=== PATIENT | female | born 1980 | race Caucasian/White ===

== ENCOUNTER 2020-12-15 18:25 | Emergency (ER) | payer OTHER, MEDICAID, SELFPAY ==
[2020-12-15] VITALS (9 sets, daily range): BP systolic 110–141; BP diastolic 62–99; PULSE 77–97; RESP 14–33; TEMP 36.8; O2SAT 99–100
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
[2020-12-15] MEDS: TETANUS,DIPHTHERIA,AC PERTUSSIS ADULT (0.5 ML) BOOSTRIX IM (19:07)
--- NOTE | 2020-12-15 19:13 | PC.NURSE ---
Assumed care of pt. at this time. Report from CHRISTOPHER Ferrera
[2020-12-15 19:17] LABS: Basophils Absolute Auto 0.1 K/mm3 (0.0-0.1); Basophils Percent Auto 0.6 % (0.2-1.2); Eosinophils Percent Auto 0.3 % (0-4.4); Hematocrit 45.8 % (37.0-47.0); Hemoglobin 15.4 g/dL (12.0-15.0); Immature Granulocyte Absolute 0.05 K/mm3 (0.00-0.031); Immature Granulocyte Percent A 0.3 % (0-0.5); Lymphocytes Percent Auto 12.4 % (18.3-44.2); Mean Corpuscular HGB Conc 33.6 g/dl (32-36); Mean Corpuscular Hemoglobin 35.6 pg (26-34); Mean Corpuscular Volume 105.8 fl (80-100); Mean Platelet Volume 9.6 fl (7.4-10.4); Monocytes Absolute Auto 0.9 K/mm3 (0.1-0.6); Monocytes Percent Auto 6.1 % (2.6-8.5); Neutrophils Absolute Auto 11.7 K/mm3 (1.3-6.7); Neutrophils Percent Auto 80.3 % (45.5-73.1); Platelet Count Result 218 k/mm3 (150-375); Red Blood Count 4.33 M/mm3 (4.2-5.4); Red Cell Distribution Width 13.2 % (11.5-14.5); White Blood Count 14.5 K/mm3 (4.5-10.0)
[2020-12-15 19:26] LABS: INR 0.9; Prothrombin Time 12.3 Seconds (11.1-14.7)
[2020-12-15 19:27] LABS: Partial Thromboplastin Time 26.1 SECONDS (22.3-36.8)
--- NOTE | 2020-12-15 19:45 | PC.NURSE ---
Pt. taking off c-collar. pt. instructed to put it back on. pt. educated on the risks of not wearing c-collar before examinations are complete
--- NOTE | 2020-12-15 19:55 | PC.NURSE ---
Pt. removed c-collar. pt. son at the nurses station requesting RN to make pt. put c-collar back on.
[2020-12-15 20:00] LABS: Alanine Aminotransferase 87 U/L (4-35); Albumin Level 4.5 g/dL (3.5-5.1); Alkaline Phosphatase 96 U/L (38-126); Anion Gap 10 mmol/L (8-16); Aspartate Amino Transferase 117 U/L (14-36); Bilirubin,Total 0.3 mg/dL (0.2-1.3); Blood Urea Nitrogen 7 mg/dL (7-17); Calcium 8.6 mg/dL (8.4-10.2); Carbon Dioxide 21 mmol/L (22-30); Chloride 107 mmol/L (98-107); Estimated CRCL calculation 93 ml/min; Estimated Glomerular Filt Rate > 60; Glucose 113 mg/dL (65-110); Potassium 4.3 mmol/L (3.4-5.0); Sodium 138 mmol/L (137-145)
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
--- NOTE | 2020-12-15 20:20 | PC.NURSE ---
pt. refusing CT scan. ERP made aware.
--- NOTE | 2020-12-15 20:20 | PC.NURSE ---
Pt. to CT
[2020-12-15 20:25] LABS: Ethanol 306 mg/dL (<10)
== END 2020-12-15 21:55 | disposition left against medical advice (07) ==
LOC: ANHED 18:51
PROVIDERS: Emergency Provider General Practice
DX: S62.394A Other fracture of fourth metacarpal bone, right hand, initial encounter for closed fracture (principal); S62.336A Displaced fracture of neck of fifth metacarpal bone, right hand, initial encounter for closed fracture; S36.400A Unspecified injury of duodenum, initial encounter; S20.211A Contusion of right front wall of thorax, initial encounter; F10.129 Alcohol abuse with intoxication, unspecified; Z23 Encounter for immunization; I45.6 Pre-excitation syndrome; F17.200 Nicotine dependence, unspecified, uncomplicated; M47.812 Spondylosis without myelopathy or radiculopathy, cervical region; V28.4XXA Motorcycle driver injured in noncollision transport accident in traffic accident, initial encounter; Y90.8 Blood alcohol level of 240 mg/100 ml or more
CPT/HCPCS: 29125; 36415; 70450; 71045; 71260; 72125; 73130; 74177; 80053; 80307; 81025; 85025; 85610; 85730; 86850; 86900; 86901; 90471; 90715; 99284; L0140; Q9967

== ENCOUNTER 2022-02-09 05:25 | Emergency (ER) | payer OTHER, SELFPAY ==
[2022-02-09 05:28] VITALS: BP 145/92; PULSE 92; RESP 18; TEMP 36.1; O2SAT 100
--- NOTE | 2022-02-09 05:38 | PC.NURSE ---
patient admits to taken two pills and drinking 2 shots states her neighbor gave her the pills and said they were muscle relaxers. patient gave insurance underwriter the third pill noted to be oxycodone 5-500 per pill look up
[2022-02-09] MEDS: predniSONE 20 MG TABLET 40 MG PO (05:44)
[2022-02-09] MEDS: KETOROLAC 30 MG/ML VIAL (*BKC) IM (05:44)
[2022-02-09] MEDS: LIDOCAINE 5% PATCH 1 PATCH TRANSDERM (05:48)
--- NOTE | 2022-02-09 06:08 | ED.BACK ---
HPI - Back Pain/Injury General Chief Complaint: Back Pain/Injury Stated Complaint: Sciatica? 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 Patient denies any issues with urinary or bowel retention or incontinence, or saddle anesthesia, fevers or chills, any severe injury recently other than a year ago, and she is not an IV drug user. Related Data Allergies Allergy/AdvReac Type Severity Reaction Status Date / Time No Known Allergies Allergy Mild Verified 12/15/20 18:41 Review of Systems Review of Systems: GI: No abdominal : No dysuria. M/S: Lower back pain NEURO: Focal numbness right lower extremity PMFSH Past Medical History Medical History Grllg-Gtvuabxgl-Eyvch (WPW) syndrome Surgical History Surgical History H/O section Social History Social History Smoking status: Current every day smoker Alcohol intake: current Exam Narrative: EXAMINATION OF ORGAN SYSTEMS/BODY AREAS: Constitutional: Vital signs per nursing GENERAL: Mildly comfortable HEAD: Normal with no signs of head trauma. EYES: EOMI, conjunctiva normal ENT: Hearing grossly intact LUNGS: Nonlabored breathing. HEART: [Regular rate and rhythm] ABD: [Soft], [tender to palpation] BACK: No midline tenderness EXT: Normal range of motion; some paresthesias posterior right lower extremity SKIN: [No rashes or lesions.] NEURO: [Alert and oriented x 3. RLE paresthesias as above but able to bear weight and ambulate with antalgic gait.] PSYCH: Normal affect Course Vital Signs Vital signs: Vital Signs Temperature 97.0 F L 02/09/22 05:28 Pulse Rate 92 02/09/22 05:28 Respiratory Rate 18 02/09/22 05:28 Blood Pressure 145/92 H 02/09/22 05:28 Pulse Oximetry 100 02/09/22 05:28 Oxygen Delivery Room Air 02/09/22 05:28 Temperature 97.0 F L 02/09/22 05:28 Pulse Rate 92 02/09/22 05:28 Respiratory Rate 18 02/09/22 05:28 Blood Pressure 145/92 H 02/09/22 05:28 Pulse Oximetry 100 02/09/22 05:28 Oxygen Delivery Room Air 02/09/22 05:28 MDM - Back Pain/Injury MDM Narrative Medical decision making narrative: ED COURSE AND MEDICAL DECISION MAKING: ? 41-year-old with acute back pain. Normal motor exam with some paresthesias to right lower extremity. Patient able to ambulate. No evidence of acute cord compression, osteomyelitis/discitis or cauda equina without saddle anesthesia, urinary retention/incontinence, fever, history of IV drug use, cancer or immunosuppression. Doubt AAA or aortic dissection without severe pain/discomfort or any neurovascular deficits. [Ketorolac 15mg IM, prednisone 50mg PO, and lidocaine ptach] given for symptomatic relief. I did offer imaging studies however the patient declines this as she does not have insurance and would not be able to afford it, she would prefer outpatient follow-up at this time. [I discussed management of acute back pain in detail, explaining the need to remain active and the goals of pain control . Risks of using opiates were discussed with the patient.] Patient is given return precautions and instructed to come back at any point in time for worsening pain, fevers, weakness, difficulty walking, urinary or fecal incontinence. Patient expressed understanding of instructions. Discharge Plan Discharge Clinical Impression: Sciatica, Lumbar radiculopathy Patien
== END 2022-02-09 06:28 | disposition home or self-care (01) ==
LOC: ANHED 06:14
PROVIDERS: Emergency Provider Emergency Medicine
DX: M54.41 Lumbago with sciatica, right side (principal); I45.6 Pre-excitation syndrome; F17.200 Nicotine dependence, unspecified, uncomplicated; M54.16 Radiculopathy, lumbar region
CPT/HCPCS: 96372; 99283; A9270; J1885; J7512

== ENCOUNTER 2024-12-22 19:05 | Emergency (ER) | payer OTHER, SELFPAY ==
--- NOTE | ~2024-12-22 | CT_ITS ---
CT HEAD NON-CONTRAST Clinical History: headache Comparison: CT brain 12/15/2020 Technique: Unenhanced axial images skull base to vertex Coronal, sagittal reformats CT images acquired with automatic exposure control for dose reduction DLP: 681 mGy-cm Findings: Sulci, ventricles: Unremarkable. No intracerebral hemorrhage. No evidence acute territorial infarct. No mass effect, midline shift. Bony calvarium intact. Visualized paranasal sinuses: Clear. Mastoid air cells: Clear. IMPRESSION: 1. No acute intracranial findings. Reviewed, dictated and finalized at location R.
--- NOTE | ~2024-12-22 | CT_ITS ---
CT abdomen pelvis w con Clinical History: RUQ pain . Comparison: CTA chest abdomen pelvis 12/15/2020 Technique: Axial images lung bases to symphysis pubis 100 mL Omnipaque 350 Coronal, sagittal reformats CT images acquired with automatic exposure control for dose reduction DLP: 250 mGy-cm Findings: Lung bases: Clear. Visualized heart and pericardium: Unremarkable. Liver: Cirrhosis. Enlarged. Steatosis. Gallbladder: Unremarkable. Spleen: Unremarkable. Pancreas: Unremarkable. Adrenal glands: Unremarkable. Kidneys: Right kidney- No hydronephrosis. No renal stones. Left kidney- No hydronephrosis. No renal stones. Circumaortic renal vein. Distal esophagus/stomach: Mild mucosal enhancement of stomach. Small bowel loops: Mildly distended, air fluid levels. Colon: Wall thickening. Normal RLQ appendix. Nodes: No enlarged nodes. Peritoneum: No ascites. No free air. Urinary bladder: Unremarkable. Uterus: IUD. Adnexa: No masses. Bones: No acute bony abnormality. Soft tissues: Unremarkable. Aorta: No aneurysm or dissection. IVC: Unremarkable. Main portal vein/SMV/splenic vein: Patent. IMPRESSION: 1. Enterocolitis. 2. Mild gastritis not excluded. 3. Cirrhosis. Hepatomegaly, with steatosis. Reviewed, dictated and finalized at location R.
[2024-12-22 19:34] VITALS: BP 136/103; PULSE 97; RESP 18; TEMP 36.6; O2SAT 99
[2024-12-22 20:30] LABS: Hematocrit 35.3 % (37.0-47.0); Hemoglobin 11.6 g/dL (12.0-15.0); Immature Granulocyte Percent A 0.3 % (0-0.5); Lymphocytes Absolute Auto 2.26 K/mm3 (0.9-3.2); Mean Corpuscular HGB Conc 32.9 g/dl (32-36); Mean Corpuscular Hemoglobin 33.2 pg (26-34); Mean Corpuscular Volume 101.1 fl (80-100); Nucleated Red Blood Cells Absolute Auto 0.000 K/mm3 (0.0-0.012); Nucleated Red Blood Cells Perc 0.0 % (0.0-0.2); Platelet Count Result 190 k/mm3 (150-375); Red Blood Count 3.49 M/mm3 (4.2-5.4); White Blood Count 6.7 K/mm3 (4.5-10.0)
[2024-12-22 20:49] LABS: Alanine Aminotransferase 40 U/L (6-35); Albumin Level 4.4 g/dL (3.5-5.1); Alkaline Phosphatase 105 U/L (38-126); Anion Gap 15 mmol/L (4-12); Aspartate Amino Transferase 229 U/L (14-36); Bilirubin,Total 0.5 mg/dL (0.2-1.3); Blood Urea Nitrogen 6 mg/dL (7-17); Calcium 8.8 mg/dL (8.4-10.2); Carbon Dioxide 22 mmol/L (22-30); Chloride 103 mmol/L (98-107); Estimated CRCL calculation 67 ml/min; Estimated Glomerular Filt Rate > 60; Glucose 94 mg/dL (65-110); Lipase 649 U/L (23-300); Potassium 4.3 mmol/L (3.4-5.0); Sodium 140 mmol/L (137-145); Total Protein 8.8 g/dL (6.3-8.2)
--- NOTE | 2024-12-22 22:57 | ED_ITS ---
HPI - Abdominal Pain General Chief Complaint: Abdominal Pain Stated Complaint: RUQ pain Time Seen by Provider: 12/22/24 22:30 History of Present Illness HPI narrative: Patient is a 44-year-old female who presents emergency department this evening complaining of right upper quadrant abdominal pain. States that it started a few months ago but has been progressively getting worse. States that today the symptoms have been more persistent in the past few days specially throughout the day today. Denies any nausea or vomiting, any recent illness, fevers or chills. Denies any history of gallstones. No additional symptoms or concerns at this time. Related Data Allergies Allergy/AdvReac Type Severity Reaction Status Date / Time No Known Allergies Allergy Mild Verified 12/22/24 19:39 Review of Systems 2 Review of Systems: All systems are reviewed and are negative unless stated otherwise in the HPI. [facility] Past Medical History Medical History Xouxf-Sbvdjmoyx-Xviye (WPW) syndrome Surgical History Surgical History H/O section Social History Social History Smoking status: Current every day smoker Alcohol intake: current Exam 2 Narrative: General: Alert, awake, afebrile, in no acute distress. HEENT: PERRL, no rhinorrhea, no post nasal drip, oropharynx clear. Neck: Trachea midline, no JVD, no lymphadenopathy. Cardiovascular: Regular rate and rhythm, no murmurs, rubs or gallops, no peripheral edema. Respiratory: Clear to auscultation bilaterally, no tachypnea, no wheezing, no rhonchi, no rubs, no respiratory distress. Abdomen: Soft, tenderness palpation over the right upper quadrant, positive Mercer sign, nondistended, no rebound, no guarding, no peritoneal signs. Musculoskeletal: No joint swelling or deformity, normal muscle tone. Skin: No rashes or petechia, no signs of infection. Psychiatric: Alert and oriented, normal behavior and judgment for situation. Neurological: Alert and oriented to person, place, and time. Follows all commands. No focal deficits, speech is clear and fluent. Course Vital Signs Vital signs: Vital Signs Temperature 97.9 F 12/22/24 19:34 Pulse Rate 97 12/22/24 19:34 Respiratory Rate 18 12/22/24 19:34 Blood Pressure 136/103 H 12/22/24 19:34 Pulse Oximetry 99 12/22/24 19:34 Oxygen Delivery Room Air 12/22/24 19:34 Temperature 97.9 F 12/22/24 19:34 Pulse Rate 74 12/23/24 00:25 Respiratory Rate 15 12/23/24 00:25 Blood Pressure 129/74 12/23/24 00:25 Pulse Oximetry 100 12/23/24 00:25 Oxygen Delivery Room Air 12/22/24 19:34 MDM - Abdominal Pain MDM Narrative Medical decision making narrative: The patient was evaluated by myself in the emergency department. History is obtained from patient who is an independent historian and physical exam was performed. External medical records were reviewed at this time. IV was established and pertinent tests were ordered. Patient was administered 1 L IV fluid bolus with normal saline, 4 mg of IV morphine 4 mg IV Zofran. Laboratory results obtained revealing an AST of 229 and ALT of 40, lipase of 649 otherwise unremarkable. Patient admits that she was drinking today and states that she does not drink occasionally, denies heavy alcohol intake or daily alcohol intake. Urinalysis did reveal urinary tract infection patient was administered 1 g of IV Rocephin at this. Imaging studies obtained included CT abdomen pelvis with IV contrast which was independently interpreted by me revealing enteritis/colitis, possible ileus, patient did inform me that she has been having regular bowel movements. Otherwise remainder of the scan is unremarkable. CT brain without IV contrast was also obtained at this time and independently interpreted by me revealing no acute intracranial process. Differential diagnosis considerations include cholecystitis, biliary colic, pancreatitis, peptic ulcer disease, gastritis. Comorbidities impacting this visit include none. I have evaluated and discussed social determinants of health with the patient that could potentially impact subsequent diagnosis and treatment plans. On repeat assessment of the patient, reevaluation revealed that the patient is doing well and is in no acute distress. Patient symptoms have improved since she arrived to our emergency department. Repeat vital signs were all reviewed and noted to be stable. Differential diagnosis and treatment plan were discussed with the patient at bedside. Patient agrees with discussion and after shared medical decision making agrees with discharge. All questions were answered to the patient's satisfaction. Patient will follow up with her PCP in 3-5 days. She was also provided with a GI referral instructed to call to set up a follow-up appointment. A script for cephalexin was sent to patient's pharmacy to take as prescribed for her UTI. Patient was provided with strict return precautions and instructed to return to the emergency department if any new or worsening symptoms develop. The patient was discharged in stable condition. Lab Data 12/22/24 20:24 12/22/24 20:24 Labs: Lab Results 12/22/24 12/22/24 12/22/24 Range/Units 20:24 23:01 23:02 WBC 6.7 (4.5-10.0) K/mm3 RBC 3.49 L (4.2-5.4) M/mm3 Hgb 11.6 L D (12.0-15.0) g/dL Hct 35.3 L (37.0-47.0) % MCV 101.1 H (80-100) fl MCH 33.2 (26-34) pg MCHC 32.9 (32-36) g/dl RDW 16.4 H (11.5-14.5) % Plt Count 190 (150-375) k/mm3 MPV 9.1 (7.4-10.4) fl Immature Gran % (Auto) 0.3 (0-0.5) % Neut % (Auto) 54.4 (45.5-73.1) % Lymph % (Auto) 33.8 (18.3-44.2) % [place] % (Auto) 8.7 H (2.6-8.5) % Eos % (Auto) 1.8 (0-4.4) % Baso % (Auto) 1.0 (0.2-1.2) % Lymph # (Auto) 2.26 (0.9-3.2) K/mm3 [place] # (Auto) 0.6 (0.1-0.6) K/mm3 Eos # (Auto) 0.1 (0-0.3) K/mm3 Baso # (Auto) 0.1 (0.0-0.1) K/mm3 Abs Immat Gran (auto) 0.02 (0.00-0.031) K/mm3 Absolute Neuts (auto) 3.6 (1.3-6.7) K/mm3 Absolute Nucleated RBC 0.000 (0.0-0.012) K/mm3 Nucleated RBC % 0.0 (0.0-0.2) % Sodium 140 (137-145) mmol/L Potassium 4.3 (3.4-5.0) mmol/L Chloride 103 (98-107) mmol/L Carbon Dioxide 22 (22-30) mmol/L Anion Gap 15 H (4-12) mmol/L BUN 6 L (7-17) mg/dL Creatinine 0.83 (0.7-1.0) mg/dL Estim Creat Clear Calc 67 ml/min Estimated GFR > 60 (59 - ) Glucose 94 (65-110) mg/dL Calcium 8.8 (8.4-10.2) mg/dL Total Bilirubin 0.5 (0.2-1.3) mg/dL AST 229 H (14-36) U/L ALT 40 H (6-35) U/L Alkaline Phosphatase 105 (38-126) U/L Total Protein 8.8 H (6.3-8.2) g/dL Albumin 4.4 (3.5-5.1) g/dL Lipase 649 H (23-300) U/L Urine Color Yellow (Yellow) Urine Appearance Cloudy H (Clear) Urine pH 5.5 (5.0-9.0) Ur Specific [place] 1.014 (1.001-1.035) Urine Protein Negative (Negative) mg/dL Urine Glucose (UA) Negative (Negative) mg/dL Urine Ketones Negative (Negative) mg/dL Ur Blood (Man) Negative (Negative) Urine Nitrate Positive H (Negative) Urine Bilirubin Negative (Negative) Urine Urobilinogen 1.0 (<2.0) mg/dL Leukocyte Esterase Rfl 2+ H (Negative) YUSUF/UL Urine RBC 0-2 (0-2) /hpf Urine WBC 21-50 H (0-3) /hpf Ur Squamous Epith Cells None seen (Few) /hpf Urine Bacteria 4+ H /hpf Urine Casts 0-2 POC Urine HCG, Qual Negative (Negative) Discharge Plan Discharge Clinical Impression: Right upper quadrant abdominal pain, Transaminitis, UTI (urinary tract infection) Patient Disposition: Home Condition: Improved Instructions: Antibiotic Form, Urinary Tract Infection in Women (DC), Abdominal Pain (ED), Colitis (ED) Additional Instructions: Please follow-up with the family doctor in the next 3-5 days. Return to the ED if any new or worsening symptoms develop. You also part of the GI referral instructed to call set up a follow-up appointment. Take the prescribed antibiotic as instructed for UTI. Patient Language: French Prescriptions: New cephalexin 500 mg capsule 500 mg PO Q12H 7 Days Qty: 14 0RF No Action prednisone 50 mg tablet 50 mg PO DAILY Qty: 4 0RF methocarbamol 750 mg tablet 750 mg PO TID Qty: 30 0RF naproxen 250 mg tablet 250 mg PO BID Qty: 30 0RF Follow-up/Referrals: PHYSICIAN,[employer] [Primary Care Provider, Internal Medicine] Kalen Dawson MD [Physician, Gastroenterology] - 3 Days Time of Disposition: 01:09
[2024-12-22 23:03] LABS: BEDSIDEPREGUCG Negative (Negative)
[2024-12-22] MEDS: MORPHINE SULFATE (*CRX) 4 MG/ML INJ IV PUSH (23:10)
[2024-12-22] MEDS: ONDANSETRON INJ 4 MG/2 ML VIAL IV PUSH (23:11)
[2024-12-22] MEDS: SODIUM CHLORIDE 0.9% IV 1,000 ML 999 ML IV CONT (23:11)
[2024-12-22 23:14] LABS: Add Urine Microscopic? YES; Appearance Urine Cloudy (Clear); Glucose Urine UA Negative (Negative); Leukocyte Esterase Ur 2+ LEU/UL (Negative); Nitrate Urine Positive (Negative); Non Pathogenic Casts 0-2; Specific Grav Ur 1.014 (1.001-1.035)
[2024-12-23] MEDS: cefTRIAXone 1 GM in SODIUM CHLORIDE 0.9% IV 50 ML 100 ML IVPB (00:19)
[2024-12-23 00:25] VITALS: BP 129/74; PULSE 74; RESP 15; O2SAT 100
[2024-12-23 02:20] VITALS: BP 140/83; PULSE 72; RESP 14; O2SAT 100
== END 2024-12-23 01:56 | disposition home or self-care (01) ==
PROVIDERS: Emergency Provider Emergency Medicine
DX: N39.0 Urinary tract infection, site not specified (principal); R10.11 Right upper quadrant pain; R74.01 Elevation of levels of liver transaminase levels; F17.200 Nicotine dependence, unspecified, uncomplicated
CPT/HCPCS: 36415; 70450; 74177; 80053; 81001; 81025; 83690; 85025; 87086; 87186; 96361; 96365; 96375; 99284; J0696; J2270; J2405; J7030; Q9967

== ENCOUNTER 2025-01-12 14:50 | Outpatient (CLI) | payer OTHER, SELFPAY ==
--- OUTSIDE RECORDS SUMMARY | 2025-01-11 10:30 | XMS_ITS | Encounter Summary ---
Author Organization [facility] Healthcare Address [address] [place] [address] Care Team Providers Care Feed House Supervisor Name Role Phone Addie Liliya Streeter NP Primary Care Provider [phone] Reason for Visit * Diagnostic Imaging (Routine) - Closed Specialty Diagnoses / Procedures Referred By Contpetros t Referred To Contact Diagnoses Pelvic pain Procedures US Transvaginal US Pelvis W Endovaginal Melissa Go MD 4 [facility] [address] [address] Phone: tel: [facility] Referral ID Status Reason Start Date Expiration Date Visits Re quested Visits Authorized [id number] Closed 01/02/2025 02/01/2026 1 1 Encounter Details Date Type Department Care Team ([facility] Contact Info) Description 01/11/2025 10:30 AM CDT Ancillary Procedure [facility] [address] [facility] [address] [place] [id number] Pelvic pain Social History Tobacco Use Types Packs/Day Years Used Date Smoking Tobacco: Every Day Cigarettes Alcohol Use Standard Drinks/Week Comments Yes 20 (1 standard drink = 0.6 oz pu re alcohol) PHQ-2 Answer Date Recorded PHQ-2 Total Score (If total score is 3 or more points, staff should administer the PHQ-9) 1 01/02/2025 PHQ-9 Answer Date Recorded PHQ-9 Total Score 1 01/02/2025 AUDIT-C Answer Date Recorded Q1: How often do you have a drink containing alcohol? 4 or more times a week 01/02/2025 Q2: How many drinks containi ng alcohol do you have on a typical day when you are drinking? 5 or 6 Q3: How often do you have si x or more drinks on one occasion? 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
--- OUTSIDE RECORDS SUMMARY | 2025-01-11 11:00 | XMS_ITS | Encounter Summary ---
Author Organization [facility] Healthcare Address [address] [place] [address] Care Team Providers Care Doll Wigs Hackler Name Role Phone Liliya Real NP Primary Care Provider [phone] Reason for Referral * Procedure (Routine) - Pending Review Specialty Diagnoses / Procedures Referred By Zoya lockett Referred To Contact Diagnoses Encounter for insertion of Mirena IUD Procedures IUD Insertion/removal/reinsertion procedure. Oscar Bashir NP [address] [place] [address] Phone: tel: fax: [facility] Referral ID Status Reason Start Date Expiration Date V isits Requested Visits Authorized [id number] Pending Review 01/11/2025 02/10/2026 1 1 Reason for Visit * Reason Comments Procedure Mirena insertion Encounter Details Date Type Department Care Team (Latest Contact Info) Description 01/11/2025 11:00 AM CDT Procedure visit [address] [place] [address] Oscar Bashir NP [address] [place] [address] Encounter for insertion of Mirena IUD (Primary Dx); Encounter for preprocedural laboratory examination; Screening for STD (sexually transmitted disease) Social History Tobacco Use Types Packs/Day Years [...] on file 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 Insertion/removal/reinsertion procedure. Post-Procedure Diagnose(s): Encounter for insertion of Mirena IUD IUD - Insertion/removal/reinsertion procedure. Performed by: Oscar Bashir NP Authorized by: Oscar Bashir NP Consent Given by: Patient Timeout: prior to procedure the correct patient, procedure, and site was verified Verbal consent obtained: Yes Written consent obtained: Yes Risks, alternatives, and patient questions discussed: Yes Insertion: Pelvic exam performed: yes Negative urine test: yes Cervix cleaned and prepped: yes Speculum placed in vagina: yes Tenaculum applied to cervix: yes IUD inserted with no complications: yes IUD type: 1 each levonorgestreL 21 mcg/24hr (up to 8 yrs) 52 mg Strings trimmed: yes Uterus sounded to confirm IUD placement: yes Uterus sound depth (cm): 7 Ultrasound confirmation (if used): Transvaginal Post-procedure: Patient tolerance: Patient tolerated the procedure well with no immediate complications Comments: Patient is s/p 7 day course of Flagyl for trichomonas infection. She reports finishing all of the prescribed medication. She states that she had intercourse once since her previous IUD removal but that they used a condom. Urine hCG negative today. Endocervical swab obtained prior to IUD insertion. IUD inserted without complications. Minimal bleeding with good hemostasis noted after tenaculum removal. Aftercare instructions reviewed. Encouraged Ibuprofen/Tylenol for pain relief. Recommend nothing in the vagina for one week as well as backup method for prevention for one week. When toER discussed including severe pelvic pain, saturating a pad in an hour, clots the size of a golf ball or larger, fever/signs of infection. Return to return in 8 weeks for string check and KEMAL. Will trim strings at that time. Call with any questions or concerns. Cosigned by Melissa Go MD at 01/11/2025 8:35 PM CDT documented in this encounter Plan of Treatment Pending Results Name Type Priority Associated Diagnoses Date /Time N. gonorrhoeae/C. trachomatis Amplification Endocervical Microbiology Routine Screening for STD (sexually transmitted disease) 01/11/2025 11:37 AM CDT Scheduled Orders Name Type Priority Associated Diagnoses Orde r Schedule N. gonorrhoeae/C. trachomatis Amplification Endocervical Microbiology Routine Screening for STD (sexually transmitted disease) Expected: 01/11/2025, Expires: 01/11/2026 documented as of this encounter Procedures Procedure Name Priority Date/Time Associated Diagnosis Comments HI INSERTION INTRAUTERINE DEVICE IUD Routine 01/11/2025 11:00 AM CDT Encounter for insertion of Mirena IUD POCT HCG, URINE Routine 01/11/2025 10:49 AM CDT Encounter for preprocedural laboratory examination documented in this encounter Results * HI INSERTION INTRAUTERINE DEVICE IUD (01/11/2025 11:00 AM CDT) Narrative Melissa Go MD - 01/11/2025 11:00 AM CDT Melissa Go MD 01/11/2025 8:35 PM IUD - Insertion/removal/reinsertion procedure. Performed by: Oscar Bashir NP Authorized by: Oscar Bashir NP Consent Given by: Patient Timeout: prior to procedure the correct patient, procedure, and site was verified Verbal consent obtained: Yes Written consent obtained: Yes Risks, alternatives, and patient questions discussed: Yes Insertion: Pelvic exam performed: yes Negative urine test: yes Cervix cleaned and prepped: yes Speculum placed in vagina: yes Tenaculum applied to cervix: yes IUD inserted with no complications: yes IUD type: 1 each levonorgestreL 21 mcg/24hr (up to 8 yrs) 52 mg Strings trimmed: yes Uterus sounded to confirm IUD placement: yes Uterus sound depth (cm): 7 Ultrasound confirmation (if used): Transvaginal Post-procedure: Patient tolerance: Patient tolerated the procedure well with no immediate complications Comments: Patient is s/p 7 day course of Flagyl for trichomonas infection. She reports finishing all of the prescribed medication. She states that she had intercourse once since her previous IUD removal but that they used a condom. Urine hCG negative today. Endocervical swab obtained prior to IUD insertion. IUD inserted without complications. Minimal bleeding with good hemostasis noted after tenaculum removal. Aftercare instructions reviewed. Encouraged Ibuprofen/Tylenol for pain relief. Recommend nothing in the vagina for one week as well as backup method for prevention for one week. When to ER discussed including severe pelvic pain, saturating a pad in an hour, clots the size of a golf ball or larger, fever/signs of infection. Return to return in 8 weeks for string check and KEMAL. Will trim strings at that time. Call with any questions or concerns. Oscar Bashir NP IN CLINIC/BEDSIDE ORDER CRISTIN Final Result * POCT hCG, urine (01/11/2025 10:49 AM CDT) HCG, ur, POC Negative Negative Lot Number [id number] QC Backgroud Clear Acceptable QC Control Line Acceptable Urine 01/11/2025 10:4 9 AM CDT Oscar Bashir ACTING TEACHER POINT OF CARE TEST HANNA RUIZ Final Result documented in this encounter Visit Diagnoses Diagnosis Encounter for insertion of Mirena IUD- Primary Encounter for preprocedural laboratory examination Screening for STD (sexually transmitted disease) documented in this encounter Administered Medications Active Administered Medications - up to 3 most recent administrations Medication Order MAR Action Action Date Dose Rate Site levonorgestreL (MIRENA) 21 mcg/24hr (up to 8 yrs) 52 mg IUD intrauterine, Continuous (implanted device), Starting on Yumiko 01/11/25 at 1115, For 1826 days, Indications: Abnormal Uterine BleedingIndications:Abnormal Uterine Bleeding Given 01/11/2025 10:41 AM CDT 1 each Inactive Administered Medications - up to 3 most recent administrations Medication Order MAR Action Action Date Dose Rate Site levonorgestreL (MIRENA) 21 mcg/24hr (up to 8 yrs) 52 mg IUD 1 each 1 each, intrauterine, One-Time Injection, Starting on Yumiko 01/11/25 at 1100, For 1 doseIndications:Encounter for insertion of Mirena IUD Given 01/11/2025 11:00 AM CDT 1 each documented in this encounter Orders Medications Ordered That Zuhair ht Not Have Been Administered Count Last Ordered Date First Ordered Date lidocaine (GLYDO) 2 % jelly 100 mg 1 2024 documented in this encounter Care Teams Doll Wigs Hackler Relationship Specialty Start Date End Date Liliya Real NP [address] [place] [address] PCP - General 06/20/17 documented as of this encounter
--- OUTSIDE RECORDS SUMMARY | 2025-01-11 11:37 | XMS_ITS | Encounter Summary ---
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 gonorrhoeae/C. trachomatis Amplification Endocervical Microbiology Routine Screening for STD (sexually transmitted disease) 01/11/2025 11:37 AM CDT Scheduled Orders Name Type Priority Associated Diagnoses Orde r Schedule N. gonorrhoeae/C. trachomatis Amplification Endocervical Microbiology Routine Screening for STD (sexually transmitted disease) Once for 1 Occurrences starting 01/11/2025 until 01/11/2025 documented as of this encounter Visit Diagnoses Diagnosis Screening for STD (sexually transmitted disease) documented in this encounter Care Teams Mold Maker Relationship Specialty Start Date End Date Liliya Real NP [address] [place] [address] PCP - General 06/20/17 documented as of this encounter
--- OUTSIDE RECORDS SUMMARY | 2025-01-12 14:53 | XMS_ITS | Data Portability ---
Author Organization [facility] Address [address] [place] [place] [address] Care Team Providers Care Lead Manufacturing Technician Name Role Phone ROSARIO, LILIYA Primary Care Provider EMY Leija [employer] Assessment No assessment recorded. Plan of Treatment Reminders Order Date Submit Date Provider Last Modified By Organization Details Last Modified Time Details Appointments None recorded. Lab pap, IG + CT/NG/TV + reflex HPV (16+18) 2017 018 [facility], [address] [place] [address], [address], [place], [address], 8 16:36:13 HIV 1+2 AB + HIV 1 p24 Ag, qualitativ e immunoassa y, serum 2017 018 [facility], [address] [place] [address], [address], [place], [address], 8 17:18:19 HBsAg (hepatitis B surface Ag), EIA, serum 2017 018 [facility], [address] [place] [address], [address], [place], [address], 8 17:18:07 hepatitis C Ab, signal-to- cutoff, serum or plasma 2017 018 [facility], [address] [place] [address], [address], [place], [address], 8 17:18:19 RPR (rapid plasma reagin), serum 2017 018 [facility]BY[facility], [facility] [address], [address], [place], [address], 8 17:18:07 CMP, serum or plasma 2016 017 [facility], [facility] [address], [address], [place], [address], 7 06:08:58 lipid panel, serum 2016 017 MIKE LABBARBYRP, [address] [place], [place] [address] [address], [address], [place], [address], 7 06:08:59 CBC 2016 017 MIKE HUTSONRP, [address] [place] [address], [address], [place], [address], 7 06:08:59 TSH, ultra-sens itive, serum 2016 017 MIKE LABBARBYRP, [address] [place] [address], [address], [place], [address], 7 06:09:00 Referral None recorded. Procedures None recorded. Surgeries None recorded. Imaging None recorded. Medication Orders Mirena 21 mcg/24 hr (up to 8 years) 52 mg intrauteri ne device 2017 018 [email or web address] [id number], [address] [place], [address], 8 14:20:21 venlafaxin e 50 mg tablet 2017 018 INTERFACE [id number], [address] [place], [address], 8 15:14:37 venlafaxin e 37.5 mg tablet 2016 [id number], [address] [place], [address], 8 14:36:31 Patient TargetsNo targets recorded. Patient Instructions Encounter Date Encounter Id Patient Instructions Last Modified By Organization Details Last Modified Time 03/23/2017 [id number] deciding about using medicines to quit smoking Not available 03/23/2017 14:05:31 Quitting Tobacco : Care Instructions Not available 03/23/2017 14:05:31 When You Want to Lose Weight: Care Instructions Not available 03/23/2017 14:05:31 anxiety disorder : care instructions Not available 03/23/2017 14:05:31 Continue to take medications as prescribed, do not abruptly stop them. Try walking or deep breathing exercises when feeling anxious. Stress management recommended-posit aleksandra imagery. Increase activity to 30 min a day most days. Call or return if problem persists or worsens. Not available 03/23/2017 10:38:34 labs today, f/u 1 month DWP barriers to care: none Not available 03/23/2017 14:05:55 05/04/2017 [id number] deciding about using medicines to quit smoking Not available 05/04/2017 15:06:10 Quitting Tobacco : Care Instructions Not available 05/04/2017 15:06:10 When You Want to Lose Weight: Care Instructions Not available 05/04/2017 15:06:10 anxiety disorder : care instructions Not available 05/04/2017 15:06:10 Continue to take medications as prescribed, do not abruptly stop them. Try walking or deep breathing exercises when feeling anxious. Stress management recommended-posit aleksandra imagery. Increase activity to 30 min a day most days. Call or return if problem persists or worsens. Not available 05/04/2017 15:01:15 f/u 4 months f/u as needed DWP barriers to care: none Not available 05/04/2017 15:06:09 06/08/2017 [id number] abnormal Pap test: care instructions Not available 06/08/2017 12:18:46 Reason for Referral None Reported. Results Created Date Observation Date Name Description Value Unit Range Abnormal Flag Note LastModifiedBy Organization Detail LastModifiedTime 03/23/20 17 03/24/2017 CMP, serum or plasm a glucose, serum 90 mg/dL 65-99 Not Available [facility] ([facility]) [address] [place], [address], 03/24/2017 06:08:58 03/23/2003/24/2017 CMP, serum or plasm a BUN 9 mg/dL 6-20 Not Available [facility] ([facility]) [address] [place], [address], 03/24/2017 06:08:58 03/23/2003/24/2017 CMP, serum or plasm a creatinine, serum 0.76 mg/dL 0.57-1 .00 Not Available [facility] ([facility]) [address] [place], [address], 03/24/2017 06:08:58 03/23/2003/24/2017 CMP, serum or plasm a eGFR if nonafricn AM 102 mL/mi n/1.7 3 >59 Not Available [facility] ([facility]) [address] [place], [address], 03/24/2017 06:08:58 03/23/2003/24/2017 CMP, serum or plasm a eGFR if africn AM 118 mL/mi n/1.7 3 >59 Not Available [facility] ([facility]) [address] [place], [address], 03/24/2017 06:08:58 03/23/2003/24/2017 CMP, serum or plasm a BUN/creatini ne ratio 12 9-23 Not Available [facility] ([facility]) [address] [place], [address], 03/24/2017 06:08:58 03/23/20 17 03/24/2017 CMP, serum or plasm a sodium, serum 137 mmol/ L 134-14 4 Not Available [facility] ([facility]) [address] [place], [address], 03/24/2017 06:08:58 03/23/2003/24/2017 CMP, serum or plasm a potassium, serum 4.9 mmol/ L 3.5-5. 2 Not Available [facility] ([facility]) [address] [place] [address], [address], 03/24/2017 06:08:58 03/23/2003/24/2017 CMP, serum or plasm a chloride, serum 97 mmol/ L 96-106 Not Available [facility] ([facility]) [address] [place] [address], [address], 03/24/2017 06:08:58 03/23/2003/24/2017 CMP, serum or plasm a carbon dioxide, total 22 mmol/ L 18-29 Not Available [facility] ([facility]) [address] [place] [address], [address], 03/24/2017 06:08:58 03/23/2003/24/2017 CMP, serum or plasm a calcium, serum 9.7 mg/dL 8.7-10 .2 Not Available [facility] ([facility]) [address] [place] [address], [address], 03/24/2017 06:08:58 03/23/2003/24/2017 CMP, serum or plasm a protein, total, serum 7.9 g/dL 6.0-8. 5 Not Available [facility] ([facility]) [address] [place] [address], [address], 03/24/2017 06:08:58 03/23/2003/24/2017 CMP, serum or plasm a albumin, serum 4.7 g/dL 3.5-5. 5 Not Available [facility] ([facility]) [address] [place], [address], 03/24/2017 06:08:58 03/23/2003/24/2017 CMP, serum or plasm a globulin, total 3.2 g/dL 1.5-4. 5 Not Available [facility] ([facility]) [address] [place], [address], 03/24/2017 06:08:58 03/23/2003/24/2017 CMP, serum or plasm a A/G ratio 1.5 1.2-2. 2 Not Available [facility] ([facility]) [address] [place], [address], 03/24/2017 06:08:58 03/23/2003/24/2017 CMP, serum or plasm a bilirubin, total 0.6 mg/dL 0.0-1. 2 Not Available [facility] ([facility]) [address] [place], [address], 03/24/2017 06:08:58 03/23/2003/24/2017 CMP, serum or plasm a alkaline phosphatase, S 64 IU/L 39-117 Not Available [facility] ([facility]) [address] [place], [address], 03/24/2017 06:08:58 03/23/2003/24/2017 CMP, serum or plasm a AST (SGOT) 62 IU/L 0-40 above high normal Not Available [facility] ([facility]) [address] [place], [address], 03/24/2017 06:08:58 03/23/2003/24/2017 CMP, serum or plasm a ALT (SGPT) 46 IU/L 0-32 above high normal Not Available [facility] ([facility]) [address] [place], [address], 03/24/2017 06:08:58 03/23/2003/24/2017 CBC WBC 9.2 x10e3 /uL 3.4-10 .8 Not Available [facility] ([facility]) [address] [place], [address], 03/24/2017 06:08:59 03/23/20 17 03/24/2017 CBC RBC 4.26 x10e6 /uL 3.77-5 .28 Not Available [facility] ([facility]) [address] [place], [address], 03/24/2017 06:08:59 03/23/20 17 03/24/2017 CBC hemoglobin 14.6 g/dL 11.1-1 5.9 Ple ase note refer ence ghazala spence Not Available [facility] ([facility]) [address] [place], [address], 03/24/2017 06:08:59 03/23/2003/24/2017 CBC hematocrit 41.7 % 34.0-4 6.6 Not Available [facility] ([facility]) [address] [place], [address], 03/24/2017 06:08:59 03/23/2003/24/2017 CBC MCV 98 fL 79-97 above high normal Not Available [facility] ([facility]) [address] [place], [address], 03/24/2017 06:08:59 03/23/2003/24/2017 CBC MCH 34.3 pg 26.6-3 3.0 above high normal Not Available [facility] ([facility]) [address] [place], [address], 03/24/2017 06:08:59 03/23/2003/24/2017 CBC MCHC 35.0 g/dL 31.5-3 5.7 Not Available [facility] ([facility]) [address] [place], [address], 03/24/2017 06:08:59 03/23/20 17 03/24/2017 CBC RDW 13.4 % 12.3-1 5.4 Not Available [facility] ([facility]) [address] [place], [address], 03/24/2017 06:08:59 03/23/20 17 03/24/2017 CBC NRBC MIDDLE SCHOOL DIRECTOR Not Available [facility] ([facility]) [address], [place], [address], 03/24/2017 06:08:59 03/23/20 17 03/24/2017 lipid panel , serum cholesterol, total 207 mg/dL 100-19 9 above high normal Not Available [facility] ([facility]) [address], [place], [address], 03/24/2017 06:08:59 03/23/2003/24/2017 lipid panel , serum triglyceride s 82 mg/dL 0-149 Not Available [facility] ([facility]) [address], [place], [address], 03/24/2017 06:08:59 03/23/2003/24/2017 lipid panel , serum HDL cholesterol 88 mg/dL >39 Not Available [facility] ([facility]) [address], [place], [address], 03/24/2017 06:08:59 03/23/2003/24/2017 lipid panel , serum VLDL cholesterol martina 16 mg/dL 5-40 Not Available [facility] ([facility]) [address], [place], [address], 03/24/2017 06:08:59 03/23/2003/24/2017 lipid panel , serum LDL cholesterol calc 103 mg/dL 0-99 above high normal Not Available [facility] ([facility]) [address], [place], [address], 03/24/2017 06:08:59 03/23/20 17 03/24/2017 lipid panel , serum comment: MIDDLE SCHOOL DIRECTOR Not Available [facility] ([facility]) [address] [facility], [place], [address], 03/24/2017 06:08:59 03/23/20 17 03/24/2017 TSH, ultra -sens itive , serum TSH 2.790 uIU/m L 0.450- 4.500 Not Available [facility] ([facility]) [address] [facility], [place], [address], 03/24/2017 06:09:00 06/01/19 18 06/03/2017 pap, IG + CT/NG /TV + refle x HPV (16+1 8) HPV, high-risk Negati ve negati ve This high- risk HPV test detec ts thirt een high- risk types (16/1 8/31/ 33/35 /39/4 5/51/ 52/56 /58/5 ) witho lavell enlsone jc ation . Not Available [facility] ([facility]) [address] [facility], [place], [address], 06/04/2017 16:36:13 06/01/19 18 06/03/2017 pap, IG + CT/NG /TV + refle x HPV (16+1 8) chlamydia, nuc. acid amp Negati ve negati ve Not Available [facility] ([facility]) [address] [facility], [place], [address], 06/04/2017 16:36:13 06/01/19 18 06/03/2017 pap, IG + CT/NG /TV + refle x HPV (16+1 8) gonococcus, nuc. acid amp Negati ve negati ve Not Available [facility] ([facility]) [address] [place], [address], 06/04/2017 16:36:13 06/01/19 18 06/03/2017 pap, IG + CT/NG /TV + refle x HPV (16+1 8) trich vag by TISH Negati ve negati ve Not Available [facility] ([facility]) [address] [facility], [place], [address], 06/04/2017 16:36:13 06/01/19 18 06/04/2017 pap, IG + CT/NG /TV + refle x HPV (16+1 8) diagnosis: Commen t abnormal EPITH ELIAL CELL ABNOR MALIT Y. ATYPI MARTINA SQUAM OUS CELLS OF UNDET ERMIN ED SIGNI FICAN CE. Not Available [facility] ([facility]) [address] [facility], [place], [address], 06/04/2017 16:36:13 06/01/19 18 06/04/2017 pap, IG + CT/NG /TV + refle x HPV (16+1 8) recommendati on: Commen t abnormal Sugge st follo w up as clini henrique appro priat e. Not Available [facility] ([facility]) [address] [facility], [place], [address], 06/04/2017 16:36:13 06/01/19 18 06/04/2017 pap, IG + CT/NG /TV + refle x HPV (16+1 8) specimen adequacy: Commen t Satis facto ry for evalu ation . Endoc ervic al and/o r squam ous metap lasti c cells (endo cervi martina compo nent) are prese nt. Not Available [facility] ([facility]) [address] [facility], [place], [address], 06/04/2017 16:36:13 06/01/19 18 06/04/2017 pap, IG + CT/NG /TV + refle x HPV (16+1 8) clinician provided ICD10: Sonia t Z01.4 19 Not Available [facility] ([facility]) [address] [facility], [place], [address], 06/04/2017 16:36:13 06/01/19 18 06/04/2017 pap, IG + CT/NG /TV + refle x HPV (16+1 8) performed by: Sonia Schmitz ns, Cytot echno logis t (ASCP ) Not Available [facility] ([facility]) [address] [place], [address], 06/04/2017 16:36:13 06/01/19 18 06/04/2017 pap, IG + CT/NG /TV + refle x HPV (16+1 8) electronical ly signed by: Sonia Trivedi MD, Patho logis t Not Available [facility] ([facility]) [address] [place], [address], 06/04/2017 16:36:13 06/01/19 18 06/04/2017 pap, IG + CT/NG /TV + refle x HPV (16+1 8) . . Not Available [facility] ([facility]) [address] [place], [address], 06/04/2017 16:36:13 06/01/19 18 06/04/2017 pap, IG + CT/NG /TV + refle x HPV (16+1 8) pathologist provided ICD10: Sonia lockett R87.6 10 Not Available [facility] ([facility]) [address] [place], [address], 06/04/2017 16:36:13 06/01/19 18 06/04/2017 pap, IG + CT/NG /TV + refle x HPV (16+1 8) note: Sonia lockett The Pap smear is a scree heather test desig mirtha to aid in the detec tion of nivia ligna nt and malig nant condi tions of the uteri ne cervi x. It is not a diagn ostic proce dure and shoul d not be used as the sole means of detec ting cervi martina cance r. Both false -posi tive and false -nega tive repor ts do occur . Not Available [facility] ([facility]) [address] [place], [address], 06/04/2017 16:36:13 06/01/19 18 06/04/2017 pap, IG + CT/NG /TV + refle x HPV (16+1 8) test methodology: TNP The Thin Prep( R) Image r was unabl e to read this speci men. There fore a manua l revie w was perfo rmed. Not Available [facility] ([facility]) [address] [facility], [place], [address], 06/04/2017 16:36:13 Result Notes None recorded. Problems No Known Problems Procedures Surgical History Date Name Laterality Status Provider Name and Address Organization Details Recorded Time 8 IUD Replacement completed Emy Jb [facility] 06/08/2017 14:00:20 8 Date of [facility] 12:08:35 2 [facility] [place] [facility] 14:43:15 Imaging Results None recorded. Procedure Notes None recorded. Medical Equipment None Reported. Allergies No known drug allergies Medications Name Sig Start Date Stop Date Status Note LastModified by Organization Details LastModified Time Mirena 21 mcg/24 hr (up to 8 years) 52 mg intrauterin e device Take 1 device by intrauter ine route. 2017 active Not Available Not Available Not Avai lable ibuprofen 800 mg tablet active Not Available Not Available Not Available hydrocodone 5 mg-acetamin ophen 325 mg tablet 05/04 completed Not Available Not Available Not Available naproxen 250 mg tablet TAKE 1 TABLET BY MOUTH TWICE A DAY active Not Available Not Available No t Available methocarbam ol 750 mg tablet TAKE 1 TABLET BY MOUTH 3 TIMES A DAY active Not Available Not Available No t Available cephalexin 500 mg capsule TAKE 1 CAPSULE BY MOUTH 4 TIMES A DAY FOR 5 DAYS active Not Available Not Available No t Available venlafaxine 37.5 mg tablet TAKE 1 TABLET BY MOUTH EVERY DAY active Not Available Not Available No t Available prednisone 50 mg tablet TAKE 1 TABLET BY MOUTH EVERY DAY active Not Available Not Available No t Available venlafaxine 50 mg tablet Take 1 tablet every day by oral route. active Not Available Not Available No t Available Vitals Date Recorded Body height Body mass index (BMI) Body weight Oxygen saturation Oxygen saturation in Arterial blood by Pulse oximetry Heart rate Respiratory rate Systolic And Diastolic Provider Name and Address Organization Details Last Updated DateTime 8 164.47 cm 26 kg/m2 04938.2 2 g 100 % 100 % 80 /min 12 /min 112/86 mm[Hg] Michelle Fu [facility] 8 14:43:39 Date Recorded Body height Body mass index (BMI) Body weight Systolic And Diastolic Provider Name and Address Organization Details Last Updated DateTime 06/01/2017 164.47 cm 26.3 kg/m2 34245.57 g 182/98 mm[Hg] [facility] 06/01/2017 14:35:18 Date Recorded Body height Body mass index (BMI) Body weight Systolic And Diastolic Provider Name and Address Organization Details Last Updated DateTime 06/08/2017 164.47 cm 26.1 kg/m2 24987.05 g 128/100 mm[Hg] [facility] 06/08/2017 12:11:27 Date Recorded Body height Body mass index (BMI) Body weight Oxygen saturation Oxygen saturation in Arterial blood by Pulse oximetry Heart rate Respiratory rate Body temperature Systolic And Diastolic Provider Name and Address Organization Details Last Updated DateTime 7 164.47 cm 26.1 kg/m2 32087.9 7 g 100 % 100 % 85 /min 12 /min 98.4 [degF] 120/90 mm[Hg] Michelle Fu [facility] 7 10:27:25 Social History Question Answer Notes LastModified by Organizat ion Details LastModified Time Tobacco Smoking Status Current Every Day Smoker Michelle Fu brittaney [facility] 03/23/2017 10:05:39 Is Blood Transfusion Acceptable In An Emergency? Yes [email or web address] Information not available 06/01/2017 What Is Your Level Of Caffeine Consumption? Heavy Information not available 03/23/2017 How Much Tobacco Do You Chew? None Information not available 03/23/2017 What Type Of Diet Are You Following? REGULAR Information not available 03/23/2017 Which Illicit Or Recreational Drugs Have You Used? None Information not available 03/23/2017 Education 11 Information no t available 06/01/2017 Live Alone Or With Others? Alone Lives With Son Information not available 06/01/2017 What Was The Date Of Your Most Recent Tobacco Screening? 06/08/2017 Information not available 11/03/2018 How Many Children Do You Have? 1 Information not available 06/01/2017 Performs Monthly Self-breast Exam? Yes Information not available 06/01/2017 Do You Use Protection During Sex? No Information not available 06/01/2017 What Is Your Relationship Status? Information not available 06/01/2017 Seat Belts Used Routinely Yes Information not available 06/01/2017 Are You Sexually Active? Yes Information not available 06/01/2017 At What Age Did You Start Smoking Tobacco? 17 Information not available 06/01/2017 How Much Tobacco Do You Smoke? 1 PPD Information not available 03/23/2017 General Stress Level Medium Information not available 06/01/2017 Do You Use Sunscreen Routinely? Yes Information not available 06/01/2017 How Many Years Have You Smoked Tobacco? 20 Information not available 06/01/2017 Sex: Unknown Functional Status Question Answer Note LastModified by Organizat ion Details LastModified Time What is your level of alcohol consumption? Moderate 6 pk weekly Information not available 03/23/2017 Are you currently employed? 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 Moderate Information not available 06/01/2017 Mental Status None recorded. Family History Relationship Description Onset Age of this Age Resolved Age Notes LastModified by Organization Details LastModified Time Father Heart disease Not available 2016 10:05:29 Medical History Condition Response Coronary Artery Disease N Other N Atrial Fibrillation N High Blood Pressure N Breast Cancer N Lung Disease N Depression N COPD N Blood Clots N Breast Problem N Anesthesia Complications N Headaches/Migraines N Anxiety Disorder Y Muscle, Joint, or Bone Problems N Infertility N Polyps N Acid Reflux (GERD) N Cancer N Stroke N Endometriosis N High Cholesterol N Liver Disease N Headaches N Thyroid Problems N Kidney or Bladder Problems N GI Problems N Acne N Eating Disorder N Skin Problems N Anemia N Heart Attack (NH) N Diabetes N Ovarian Cancer N Blood Transfusions N Seizures/Epilepsy N Abuse/Domestic Violence N Asthma N Allergies N Hepatitis N Heart Disease N Pre-Eclampsia N Heart Failure N Osteoporosis N Gynecological History Statement/Question Response Abnormal Pap Y On BCP's at Conception? N STIs/STDs N HPV Vaccine N Age at Menarche 15 Current Control Method IUD Age at First Child 21 Sexually Active? Y Menses Monthly N Date of Last Pap Smear 06/01/2017 Sexual Problems? N LMP Unknown Obstetrics History GPAL:G 3 P 1 0 2 1 Type Value Multiple Births 0 Full Term 1 Induced 2 Spontaneous 0 Premature 0 Living 1 Ectopics 0 Total 3 Past Encounters Encounter ID Performer Location Encounter Start Date Encounter Closed Date Diagnosis/Indication Diagnosis SNOMED-CT Code Diagnosis ICD10 Code Diagnosis IMO Codes Diagnosis Note [id number] MD Debora Rios (Adult Med) [address] [place] [address] 03/23/2017 09:44:18 03/23/2017 17:45:12 Generalized anxiety disorder 65066754 F41.1 ABISAI score mild, pt requests to try Effexor instead of the Paxil she used to be on, dwp r/b/se and she agrees to start low dose daily; Also dwp to stop energy drinks and decrease overall caffeine use. Adult [facility] th examination 652850144 Z00.00 Overweight 900041988 E66 .3 advised low fat, low cholestero l, low carb diet, regular exercise and weight reduction. Tobacco de pendence syndrome 93820515 F17.200 Smoking cessation encouraged . [id number] MD Debora Rios (Adult Med) [address] [place] [address] 05/04/2017 14:33:54 05/05/2017 16:02:23 Generalized anxiety disorder 96487112 F41.1 ABISAI score mild, pt requests to try Effexor instead of the Paxil she used to be on, dwp r/b/se and she agrees to start low dose daily; Also dwp to stop energy drinks and decrease overall caffeine use. Cont with venlafaxin e, increasing to 50 mg Overweight 267665336 E66 .3 advised low fat, low cholestero l, low carb diet, regular exercise and weight reduction. Tobacco de pendence syndrome 34602265 F17.200 Smoking cessation encouraged . [id number] MD Debora Blanchard (PROTECTIVE SIGNAL REPAIRER) [address] [place] [address] 06/01/2017 14:23:45 07/30/2017 10:57:23 Gynecologic examination 22515995 Z01.419 No record of last pap. Pap done. Venereal d isease screening 425119396 Z11.3 RTO one week for results. [facility] [id number] Z30.9 control options discussed. Pt. wants another Mirena IUD. Her current one expires in 7 days.. Benefits, risks, and alternativ es to Mirena IUD replacemen t d/w pt. Pt. expressed understand ing. All pt. questions answered. RTO within 7 days weeks for MIrena IUD replacemen t. [id number] MD Mouna Blanchardhalto (PROTECTIVE SIGNAL REPAIRER) [address] [place] [address] 06/08/2017 11:22:14 06/11/2017 11:57:26 Atypical squamous cells of undetermined significance on cervical Papanicolaou smear 317076064 R87.610 hr-HPV was negative. Therefore, repeat co-testing in 3 years, dwp. [facility] [id number] Z30.9 Benefits, risks, and alternativ es to Mirena IUD replacemen t d/w pt. Pt. expressed understand ing. All pt. questions answered. Consent signed and in chart. Current Mirena expires today. Mirena IUD was replaced per protocol and without difficulty . Please see procedure note for details. Pt. tolerated the procedure well. RTO 2 mo. for string check. Health Concerns Section Related Observation LastModified by Organization Detai ls LastModified Time None Recorded Concern Status LastModified by Organization Details LastModified Time None Recorded Advance Directives Directive None Recorded Payers Insurance Date Sequence Insurance Name Policy Number Policy Castillo Covered Member ID Castillo Member ID Guarantor Name 07/09/2022 1 [place] DEPARTMENT OF [place] AID Olivia Avalos [id number] Olivia Avalos 07/09/2022 1 [facility] [id number] Olivia Avalos [id number] Olivia Avalos 12/20/2020 1 [facility] [place] (MEDICAID HMO) [id number] Olivia Avalos [id number] Olivia Avalos 07/09/2022 1 [employer] [facility] ON OR AFTER 03/12/2020 (MEDICAID REPLACEMENT - HMO) Olivia Vacapetros [id number] Olivia Avalos Notes Date Note Type Note Provider Name and Address Organization Details Recorded Time 7 text/html Here to est care.Used to take Paxil years ago, recent loss of dad, more anxiety than normal, big open places are triggering panic attacks, has them in most stores and when large groups of people present, on bridges, smokes- 1 ppdETOH- daily to weeklyDiet- regular, drinks monster energy drinksGYNE- needing to go back to Dr Muhammad, almost been 5 years Liliya Rosario APN, STEFAN-C Attn: Accounting,[address] [place], [address], [facility] - [facility] 03/23/2017 14:16:10 8 text/html Anxiety/DepressionReporte d by PatientUsed to take Paxil years ago, recent loss of dad, more anxiety than normal, big open places are triggering panic attacks, has them in most stores and when large groups of people present, on bridges, doing better overall with the effexor, less anxious smokes- 1 ppd ETOH- daily to weeklyDiet- regular, drinks monster energy drinksGYNE- needing to go back to Dr Muhammad, almost been 5 years Liliya Rosario APN, DOOR TO DOOR SALES REPRESENTATIVE-C Attn: Accounting[address] [place], [address], [facility] - [facility] 05/08/2017 21:38:55 8 text/html Annual GYNReported by PatientGenitourinary symptomsFor menstrual cycle, patient reportsnormal menses. For urinary symptoms, patient reportsno hematuriaandno incontinence. For vulva, patient reportsno genital lesion. For vagina, patient reportsnormal vaginal discharge.Breast symptomsFor breast, patient reportsno breast pain,no breast lump, andno nipple discharge.ContraceptionFo r current contraception, patient reportsintrauterine device (iud).Endocrine symptomsFor sexual complaints, patient reportsno sexual complaints,no pain during intercourse, andnormal libido. For menopausal symptoms, patient reportsno menopausal symptomsandnormal vaginal lubrication.Psychological symptomsFor psychological symptoms, patient reportsno depression,no anxiety, andno pmdd.Preventative measuresFor preventive measures, patient reportsencourage self breast examination,encourage regular exercise,encourage no tobacco use, andencourage regular mammograms starting age 40. Emy quispe, MD - [facility] 07/28/2017 10:18:04 8 text/html ROS as noted in the HPI Pt. presents for Mirena IUD replacement. Her current Mirena IUD expires today. She has no complaints. Emy quispe, MD - [facility] 06/08/2017 14:01:49 OBGyn Episode Ob Episode Information Episode Created Date Number of Fetuses Patient Bloodtype Patient rh Status Prepregnancy Weight lbs Domestic Partner Domestic Partner Phone Father Name Scout Leaser Status 06/01/19 18 1 CLOSED Fetus Data First Name Last Name Admitted to NICU Weight (g) Sex Living Outcome Pediatric Complications Fetus ID Race Codes Race Delivery Type , Induced [id number] Antoine Calculation Initial Antoine Date Initial Exam Date Initial Exam Provider Initial Ultrasound Date Last Menstrual Period Date Ultra Sound Weeks Gestation 0 Eighteen To Twenty Week Antoine Update Ultra Sound Date Fundal Height At Umbil Quickening Date Ultra Sound Latest Weeks Gestation Final Antoine Confirmed By Final Antoine Confirmed Date Final Antoine Date Ultra Sound Latest Days Gestation 0 0 Menstrual History Last Menstrual Date Menses Monthly On Bcp Conception Prior Menses Frequency Hcg Plus Date Menarche Onset Age Delivery Information Delivery Date Delivery Type Labor Anesthesia Weeks Gestation Incision Type Labor Labor Length Hrs Delivered By Post Complications Tubal Sterilization Discharge Date Comments 5 Discharge Information Feeding Method Contraceptive Method Maternal HG B and HCT Levels Ob Episode Information Episode Created Date Number of Fetuses Patient Bloodtype Patient rh Status Prepregnancy Weight lbs Domestic Partner Domestic Partner Phone Father Name Scout Leaser Status 06/01/19 18 1 CLOSED Fetus Data First Name Last Name Admitted to NICU Weight (g) Sex Living Outcome Pediatric Complications Fetus ID Race Codes Race Delivery Type , Induced [id number] Antoine Calculation Initial Antoine Date Initial Exam Date Initial Exam Provider Initial Ultrasound Date Last Menstrual Period Date Ultra Sound Weeks Gestation 0 Eighteen To Twenty Week Antoine Update Ultra Sound Date Fundal Height At Umbil Quickening Date Ultra Sound Latest Weeks Gestation Final Antoine Confirmed By Final Antoine Confirmed Date Final Antoine Date Ultra Sound Latest Days Gestation 0 0 Menstrual History Last Menstrual Date Menses Monthly On Bcp Conception Prior Menses Frequency Hcg Plus Date Menarche Onset Age Delivery Information Delivery Date Delivery Type Labor Anesthesia Weeks Gestation Incision Type Labor Labor Length Hrs Delivered By Post Complications Tubal Sterilization Discharge Date Comments 8 Discharge Information Feeding Method Contraceptive Method Maternal HG B and HCT Levels Ob Episode Information Episode Created Date Number of Fetuses Patient Bloodtype Patient rh Status Prepregnancy Weight lbs Domestic Partner Domestic Partner Phone Father Name Scout Leaser Status 06/01/19 18 1 CLOSED Fetus Data First Name Last Name Admitted to NICU Weight (g) Sex Living Outcome Pediatric Complications Fetus ID Race Codes Race Delivery Type 3685.43 5 M Full Term [id number] Antoine Calculation Initial Antoine Date Initial Exam Date Initial Exam Provider Initial Ultrasound Date Last Menstrual Period Date Ultra Sound Weeks Gestation 0 Eighteen To Twenty Week Antoine Update Ultra Sound Date Fundal Height At Umbil Quickening Date Ultra Sound Latest Weeks Gestation Final Antoine Confirmed By Final Antoine Confirmed Date Final Antoine Date Ultra Sound Latest Days Gestation 0 0 Menstrual History Last Menstrual Date Menses Monthly On Bcp Conception Prior Menses Frequency Hcg Plus Date Menarche Onset Age Delivery Information Delivery Date Delivery Type Labor Anesthesia Weeks Gestation Incision Type Labor Labor Length Hrs Delivered By Post Complications Tubal Sterilization Discharge Date Comments 2 Discharge Information Feeding Method Contraceptive Method Maternal HG B and HCT Levels
--- OUTSIDE RECORDS SUMMARY | 2025-01-12 14:53 | XMS_ITS | Encounter Summary ---
Author Organization [facility] Healthcare Address [address] [place] [address] Care Team Providers Care Chopper Gun Operator Name Role Phone Liliya Real NP Primary Care Provider [phone] Encounter Details Date Type Department Care Team (Late st Contact Info) Description 01/04/2025 Results Follow-Up [address] [place] [address] Oscar Bashir NP [address] [place] [address] Pap and High Risk HPV and Genotyping (Cytology Component), DIAGNOSTIC MAMMOGRAM BILATERAL W RAUL, US Breast Limited right Social History Tobacco Use Types Packs/Day Years [...] on file Legal 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 Gender Identity Not on file Sexual Orientation Not on file documented as of this encounter Ordered Prescriptions Prescription Sig Dispense Quantity Refills Last Filled Start Date End Date metroNIDAZOLE (FLAGYL) 500 mg tabletIndications:Tr ichomonal vulvovaginitis Take 1 tablet (500 mg total) by mouth 2 (two) times a day for 7 days 14 tablet 01/04/2025 5 documented in this encounter Plan of Treatment Not on file documented as of this encounter Visit Diagnoses Diagnosis Trichomonal vulvovaginitis- Primary documented in this encounter Care Teams Chopper Gun Operator Relationship Specialty Start Date End Date Liliya Real NP [address] [place] [address] PCP - General 06/20/17 documented as of this encounter
--- OUTSIDE RECORDS SUMMARY | 2025-01-12 14:53 | XMS_ITS | Clinical Summary ---
Author Organization [facility] Address [address] [place] [address] Care Team Providers Care Supplier Engineer Name Role Phone Liliya Real NP Primary Care Provider [phone] Allergies No known active allergies Medications diphenhydrAMINE-ac etaminophen (TYLENOL PM) 25-500 mg tablet Take 1 tablet by mouth as needed for sleep Active cephalexin (KEFLEX) 500 mg capsule Take 1 capsule (500 mg total) by mouth 5 Active venlafaxine (EFFEXOR) 50 mg tablet Take 50 mg by mouth daily. 3 8 025 Discontinu ed(Patient Reported) metroNIDAZOLE (FLAGYL) 500 mg tabletIndications: Trichomonal vulvovaginitis Take 1 tablet (500 mg total) by mouth 2 (two) times a day for 7 days 14 tablet 5 025 Hospital, Clinic, or Other Facility Administered Medication Ordered Dose Route Frequency Start Date End Date Status levonorgestreL (MIRENA) 21 mcg/24hr (up to 8 yrs) 52 mg IUDIndications:Abno rmal Uterine Bleeding intrauterine Continuous (implanted device) 01/11/2025 0 Active lidocaine (GLYDO) 2 % jelly 100 mgIndications:Encou nter for preprocedural laboratory examination 100 mg topical Once 01/11/2025 5 Ended levonorgestreL (MIRENA) 21 mcg/24hr (up to 8 yrs) 52 mg IUD 1 eachIndications:Enc ounter for insertion of Mirena IUD 1 each intrauterine One-Time Injection 01/11/2025 10/02/202 5 Ended Active Problems No known active problems Encounters Date Type Department Care Team Description 01/11/2025 11:37 AM CDT - 01/11/2025 11:59 PM CDT Hospital Encounter [address] [address] Screening for STD (sexually transmitted disease) Discharge Disposition: Discharge to home or self care 01/11/2025 11:00 AM CDT Procedure visit [facility] [address] [place] [address] [address] [place] [address] Mikayla Mace NP Encounter for insertion of Mirena IUD (Primary Dx); Encounter for preprocedural laboratory examination; Screening for STD (sexually transmitted disease) 01/11/2025 10:30 AM CDT Ancillary Procedure [facility] [address] [place] [address] [address] [place] [address] Pelvic pain 01/05/2025 9:24 AM CDT - 01/05/2025 11:59 PM CDT Hospital Encounter [facility] [address] [place] [address] Breast pain, right Discharge Disposition: Discharge to home or self care 01/05/2025 9:24 AM CDT - 01/05/2025 11:59 PM CDT Hospital Encounter [facility] [address] [place] [address] Breast pain, right Discharge Disposition: Discharge to home or self care 01/04/2025 Results Follow-Up [facility] [address] [place] [address] [address] [place] [address] Mikayla Mace NP Pap and High Risk HPV and Genotyping (Cytology Component), DIAGNOSTIC MAMMOGRAM BILATERAL W RAUL, US Breast Limited right 01/02/2025 12:27 PM CDT - 01/02/2025 11:59 PM CDT Hospital Encounter [address] [address] Well woman exam Discharge Disposition: Discharge to home or self care 01/02/2025 11:00 AM CDT Office Visit [facility] [address] [place] [address] [address] [place] [address] Mikayla Mace NP Well woman exam (Primary Dx); Encounter for removal of intrauterine contraceptive device; Pelvic pain; Breast pain, right; Encounter for screening mammogram for breast cancer 01/02/2025 Documentation [facility] [address] [facility] [address] [place] [address] Mikayla Mace NP from Last 3 Months Surgical History Surgery Date Site/Laterality Comments ORAL SURGERY 04/12/2024 - 04/11/2025 dog knocked tooth out Medical History Medical History Date Comments Kwfzf-Ycirqkyni-Qkjhn syndrome Family History Medical History Relation Name Comments Lung cancer Father Ruben Aneurysm Maternal Grandfather Gene Breast cancer Maternal Grandmother Jennifer Has hightower d twice and treated twice Aneurysm Mother's Brother Aashish Cancer Mother's Sister Unsure what type - possibly colon or anal? Breast cancer Paternal Grandmother Yoko Relation Name Status Comments Father Ruben Maternal Grandfather Gene Maternal Grandmother Jennifer Alive Mother's Brother Aashish Mother's Sister Paternal Grandmother Yoko Social History Tobacco Use Types Packs/Day Years Used Date Smoking Tobacco: Every Day Cigarettes Tobacco Cessation:Ready to Q uit: Not Asked; Counseling Given: Not Answered Alcohol Use Standard Drinks/Week Comments Yes 20 [...] on file Legal Sex Female 1:24 AM [employer] Gender Identity Not on file Sexual Orientation Not on file Obstetrics History Para Term AB IAB SAB Ectopic Multiple Livin g Live Births 2 1 1 1 1 Date Outcome GA Total Labor Labor/2nd/3rd Weight Sex Type Anes PTL Demetra A1 A5 Name Clin SAB 11/15 M C-Sec tion Epidural Complications:None Last Filed Vital Signs Vital Sign Reading Time Taken Comments Blood Pressure 138/96 01/11/2025 11:32 AM CDT Pulse 72 12/17/2020 5:20 AM CDT Temperature 36.6 C (97.9 F) 12/16/2020 10:39 PM CDT Respiratory Rate 18 12/16/2020 10:39 PM CDT Oxygen Saturation 99% 12/17/2020 5:20 AM CDT Inhaled Oxygen Concentration - - Weight 55.8 kg (123 lb) 01/11/2025 11:32 AM CDT Height 167.6 cm (5' 6) 01/11/2025 11:32 AM CDT Body Mass Index 19.85 01/11/2025 11:32 AM CDT Plan of Treatment Health Maintenance Due Date Last Done Comments Hepatitis C Screening 1980 Varicella Vaccines (1 of 2 - 13+ 2-dose series) 1995 Hepatitis B Screening 2000 Pneumococcal vaccine <65 (1 of 2 - PCV) 2001 HPV Vaccines (1 - 3-dose SCDM series) 2009 Covid-19 Vaccine (2 - 2024- season) 2024 Influenza Vaccine (#1) 2024 Cervical Cancer Screening 01/02/2026 01/02/2025, Depression Screening 01/02/2026 01/02/2025 Regular Well Visit/Exam 18-64 01/02/2026 01/02/2025 Breast Cancer Screening-Mammogram 01/05/2026 025 DTaP/Tdap/Td Vaccine (2 - Td or Tdap) 12/15/203008/2020 Procedures Procedure Name Priority Date/Time Associated Diagnosis Comments PA INSERTION INTRAUTERINE DEVICE IUD Routine 01/11/2025 11:00 AM CDT Encounter for insertion of Mirena IUD POCT HCG, URINE Routine 01/11/2025 10:49 AM CDT Encounter for preprocedural laboratory examination US BREAST RIGHT LIMITED Schedule Routine, Read Routine (OP Routine) 01/05/2025 10:36 AM CDT Breast pain, right DIAGNOSTIC MAMMOGRAM BILATERAL W RAUL Schedule Routine, Read Routine (OP Routine) 01/05/2025 9:49 AM CDT Breast pain, right HIGH RISK HPV DNA DETECTION WITH GENOTYPING Routine 01/02/2025 12:27 PM CDT Well woman exam PAP AND HIGH RISK HPV, REFLEX TO GENOTYPING Routine 01/02/2025 11:32 AM CDT Well woman exam PA REMOVAL INTRAUTERINE DEVICE IUD Routine 01/02/2025 11:00 AM CDT Encounter for removal of intrauterine contraceptive device from Last 3 Months Results * PA INSERTION INTRAUTERINE DEVICE IUD (01/11/2025 11:00 AM CDT) Narrative Melissa Go MD - 01/11/2025 11:00 AM CDT Melissa Go MD 01/11/2025 8:35 PM IUD - Insertion/removal/reinsertion procedure. Performed by: Mikayla Mace NP Authorized by: Mikayla Mace NP Consent Given by: Patient Timeout: prior [...] time. Call with any questions or concerns. Mikayla Mace NP IN CLINIC/BEDSIDE ORDER CRISTIN Final Result * POCT hCG, urine (01/11/2025 10:49 AM CDT) HCG, ur, POC Negative Negative Lot Number [id number] QC Backgroud Clear Acceptable QC Control Line Acceptable Urine 01/11/2025 10:4 9 AM CDT Mikayla Mace HYGIENE ASSISTANT POINT OF CARE TEST SANIYAE SARA Final Result * US Breast Limited right (01/05/2025 10:36 AM CDT) Anatomical Region Laterality Modality Breast Right Ultrasound 01/05/2025 10:4 5 AM CDT Impressions 01/08/2025 2:31 PM CDT There is no mammographic or sonographic evidence of malignancy. Follow-up in 1 year with screening mammography is recommended. BI-RADS: 1 - Negative. The patient has been or will be contacted. The patient will be entered into a reminder system with a target due date of 1 year for her next mammogram. Electronically signed by: Manda Hay M.D. Narrative 01/08/2025 2:31 PM CDT EXAMINATION: DIAGNOSTIC MAMMOGRAM BILATERAL W RAUL ORDERING HEALTHCARE PROVIDER: MIKAYLA MACE HISTORY: Focal pain right breast. COMPARISON: None TECHNIQUE: CC and MLO routine views of the Bilateral breasts were obtained with digital technique using breast tomosynthesis with C view. Computer aided detection was utilized. This was followed by targeted right breast sonography. FINDINGS: The breasts are heterogeneously dense, which may obscure small masses. There are no suspicious masses, calcifications, or architectural distortion in either breast on the mammogram. No lesions are seen underlying the area of pain in the right breast. Further evaluation was obtained with sonography. Targeted right breast ultrasound: Targeted sonographic evaluation of the right breast was performed. No lesions are seen underlying the area of pain at the 7 to 9 o'clock position of the right breast, 6 to 8 cm from the nipple. us Mikayla Mace HYGIENE ASSISTANT IMG MAMMO PROCEDURES Fi nal Result * DIAGNOSTIC MAMMOGRAM BILATERAL W RAUL (01/05/2025 9:49 AM CDT) Anatomical Region Laterality Modality Breast Bilateral Mammography 01/05/2025 10:4 5 AM CDT Impressions 01/05/2025 10:45 AM CDT There is no mammographic or sonographic evidence of malignancy. Follow-up in 1 year with screening mammography is recommended. BI-RADS: 1 - Negative. The patient has been or will be contacted. The patient will be entered into a reminder system with a target due date of 1 year for her next mammogram. Electronically signed by: Manda Hay M.D. Narrative 01/05/2025 10:45 AM CDT EXAMINATION: DIAGNOSTIC MAMMOGRAM BILATERAL W RALU ORDERING HEALTHCARE PROVIDER: MIKAYLA MACE HISTORY: Focal pain right breast. COMPARISON: None TECHNIQUE: CC and MLO routine views of the Bilateral breasts were obtained with digital technique using breast tomosynthesis with C view. Computer aided detection was utilized. This was followed by targeted right breast sonography. FINDINGS: The breasts are heterogeneously dense, which may obscure small masses. There are no suspicious masses, calcifications, or architectural distortion in either breast on the mammogram. No lesions are seen underlying the area of pain in the right breast. Further evaluation was obtained with sonography. Targeted right breast ultrasound: Targeted sonographic evaluation of the right breast was performed. No lesions are seen underlying the area of pain at the 7 to 9 o'clock position of the right breast, 6 to 8 cm from the nipple. us Mikayla Mace NP IMG MAMMO PROCEDURES Fi nal Result * High Risk HPV DNA Detection with Genotyping (Molecular component) (01/02/2025 12:27 PM CDT) HPV HR 16 Not Detected Not Detected [facility] Comment:Testing performed by : [facility], [address] [place]., [address] HPV HR 18 Not Detected Not Detected [facility] Comment:Testing performed by : [facility], [address] [place]., [address] HPV HR Non 16/18 Not Detected Not Detected [facility] Comment: Interpretive Data Nucleic acid amplification for detection of high-risk Human Papilloma virus (HPV) is performed by the [place] Adarsh 6800 HPV test. This assay specifically detects HPV-16 and HPV-18 genotypes. The following HPV genotypes are detected as high-risk HPV: HPV-31, 33, 35, ,39, 45, 51, 52, 56, 58, 59, 66, and 68. This assay has been approved by the [place] Food and Drug Administration for detection of HPV in cervical specimens collected by a physician using an endocervical brush/spatula or cervical broom and placed in the ThinPrep Pap Test PreservCyt collection containers. The performance characteristics of this test have been verified by the [facility] Molecular Infectious Disease laboratory. Correlate with separately reported cytology results, as applicable. Interpretive data last revised 22 Testing performed by: [facility], [address] [place]., [address] Endocervical 01/02/2025 12:2 7 PM CDT 01/03/2025 1:30 PM CDT Narrative [facility] - 01/03/2025 9:43 PM CDT Clinical history and diagnosis->well woman Number of vials->1 Testing type->Screening Last menstrual period (date if known)->Unknown Contraceptive use->IUD us Mikayla Mace NP LAB BODY FLUIDS AND STO OLS ORDERABLES Final Result [facility] [id number] [place] [address] Department of Laboratories [place] [id number] [facility] * Pap and High Risk HPV and Genotyping (Cytology Component) (01/02/2025 11:32 AM CDT) Thin prep (Pap test) 01/02/2025 11:32 AM CDT 01/02/2025 11:32 AM CDT Narrative PATHOLOGY - 01/04/2025 1:43 PM CDT [facility] Department of Pathology [address] [place], [place] [id number] Final Report with Addendum Note to Patients: This report may contain a detailed description of human tissue sent by a health care provider to the laboratory for pathologic evaluation. The content of this report is essential for diagnosis and may provide important critical findings. This information may be unfamiliar to patients to review without a medical professional present. It is advised that the patient review this report in the presence of a health care provider who can answer questions and explain the details. Patient Name: VERONICA GONZALEZ Address: [address] [place] [address] Gender: F : 1980 (Age: 44) Service: Location: [facility] : [id number] [facility] #: [id number] Patient Type: SPECIMEN Taken: 01/02/2025 Received: 01/02/2025 Accessioned:: 01/03/2025 Reported: 01/04/2025 Physician(s): JOHNNA Elizalde NP Diagnosis: SOURCE OF SPECIMEN SCREENING THIN PREP IMAGED PAP w/ HPV: STATEMENT OF ADEQUACY - Satisfactory for evaluation; endocervical/transformation zone component present GENERAL CATEGORIZATION: - Negative for intraepithelial lesion or malignancy INTERPRETATION: - Trichomonas vaginalis present RITA Zamudio(ASCP) Report Electronically Reviewed and Signed Out By RITA Zamudio(ASCP) 01/04/2025 13:43:47Addenda: HPV Test Interpretation (Normal-Negative for High Risk HPV) HPV HR 16- Not detected HPV HR 18-Not detected HPV HR non 16/18- Not detected Interpretive Data Nucleic acid amplification for detection of high-risk Human Papilloma virus (HPV) is performed by the [place] [employer]arsh 6800 HPV test. This assay specifically detects HPV- 16 and HPV-18 genotypes. The following HPV genotypes are detected as high-risk HPV: HPV-31, 33, 35, 39, 45, 51, 52, 56, 58, 59, 66, and 68. This assay has been approved by the [place] Food and Drug Administration for detection of HPV in cervical specimens collected by a physician using an endocervical brush/spatula or cervical broom and placed in the ThinPrep Pap Test PreservCyt collection containers. The performance characteristics of this test have been verified by the [facility] Molecular Infectious Disease laboratory. Correlate with reported cytology results, as applicable. Interpretive data last revised 22 RITA Zamudio(ASCP)Report Electronically Reviewed and Signed Out By RITA Zamudio(ASCP) 01/04/2025 10:24:24 Specimen(s) Received: A: SCREENING THIN PREP IMAGED PAP w/ HPV Clinical History: Contraceptive History: IUD The Pap test is a screening test used to aid in the detection of cervical cancer and its precursors. It should not be the sole means by which malignant and premalignant lesions are diagnosed. Both false negative and false positive results may occur. It also has poor sensitivity for the detection of endometrial lesions and should not be used to evaluate suspected endometrial abnormalities. For these reasons it is most important to obtain Pap tests at regular intervals. The performance characteristics of some immunohistochemical stains, fluorescence in-situ hybridization tests and immunophenotyping by flow cytometry cited in this report (if any) were determined by the Surgical Pathology Department at [facility] as part of an ongoing quality control tech raw materials program and in compliance with federally mandated regulations drawn from the Clinical Laboratory Improvement Act of 1988 (CLIA '88). Some of these tests rely on the use of analyte specific reagents and are subject to specific labeling requirements by the [place] Food and Drug Administration. Such diagnostic tests may only be performed in a facility that is certified by the Department of Health and Human Services as a high complexity laboratory under CLIA '88. The FDA has determined that such clearance or approval is not necessary. This test is used for clinical purposes. It should not be regarded as investigational or for research. Nevertheless, federal rules concerning the medical use of analyte specific reagents require that the following disclaimer be attached to the report: This test was developed and its performance characteristics determined by the Surgical Pathology Department [facility]. It has not been cleared or approved by the U. S. Food and Drug Administration. Mikayla Mace NP LAB CYTOLOGY ORDERABLES Final Result Performing Organization Address City/State/[facility] Co de Phone Number PATHOLOGY [address] [place] [address] * PA REMOVAL INTRAUTERINE DEVICE IUD (01/02/2025 11:00 AM CDT) Narrative Melissa Go MD - 01/02/2025 11:00 AM CDT Melissa Go MD 01/03/2025 5:29 PM IUD - Removal Performed by: Mikayla Mace NP Authorized by: Mikayla Mace NP Consent Given by: Patient Verbal consent obtained: Yes Written consent obtained: Yes Risks, alternatives, and patient questions discussed: Yes Removal: Removal with/due to: No complications Post-procedure: Patient tolerance: Patient tolerated the procedure well with no immediate complications Comments: IUD removed and shown to patient. Informed of immediate return to fertility. Scant amount of bleeding noted from cervical os. Mikayla Mace NP IN CLINIC/BEDSIDE ORDER CRISTIN Final Result from Last 3 Months Insurance IDPA [facility] CHOICE PLUS [facility] Care Teams Supplier Engineer Relationship Specialty Start Date End Date Liliya Real NP [address] [place] [address] PCP - General 06/20/17
[2025-01-12 15:06] LABS: Hematocrit 35.9 % (37.0-47.0); Hemoglobin 11.9 g/dL (12.0-15.0); Mean Corpuscular HGB Conc 33.1 g/dl (32-36); Mean Corpuscular Hemoglobin 33.9 pg (26-34); Mean Corpuscular Volume 102.3 fl (80-100); Platelet Count Result 173 k/mm3 (150-375); Red Blood Count 3.51 M/mm3 (4.2-5.4); White Blood Count 8.6 K/mm3 (4.5-10.0)
[2025-01-12 15:16] LABS: Alanine Aminotransferase 46 U/L (6-35); Albumin Level 4.7 g/dL (3.5-5.1); Alkaline Phosphatase 97 U/L (38-126); Aspartate Amino Transferase 252 U/L (14-36); Bilirubin,Total 1.6 mg/dL (0.2-1.3); Lipase 174 U/L (23-300); Total Protein 9.2 g/dL (6.3-8.2)
[2025-01-12 15:18] LABS: INR 1.0; Prothrombin Time 13.1 Seconds (11.1-14.7)
== END 2025-01-12 14:51 | disposition home or self-care (01) ==
LOC: ANHLAB 14:51
PROVIDERS: Visit Provider Nurse Practitioner Family
DX: K74.60 Unspecified cirrhosis of liver (principal); R79.89 Other specified abnormal findings of blood chemistry; R74.8 Abnormal levels of other serum enzymes
CPT/HCPCS: 36415; 80076; 83690; 85027; 85610

== ENCOUNTER 2025-01-15 01:35 | Day surgery (SDC) | payer OTHER, SELFPAY ==
[2025-01-10 15:32] VITALS: BMI 21.2
--- OUTSIDE RECORDS SUMMARY | 2025-01-15 01:38 | XMS_ITS | Clinical Summary ---
Author Organization [facility] Address [address] [place] [address] Care Team Providers Care Paste Up Copy Camera Operator Name Role Phone Liliya Real NP Primary Care Provider [phone] Allergies No known active allergies Medications diphenhydrAMINE-ac [...] - 01/11/2025 11:59 PM CDT Hospital Encounter [address] [address] Screening for STD (sexually transmitted disease) Discharge Disposition: Discharge to home or self care 01/11/2025 11:00 AM CDT Procedure visit [facility] Rizo [address] [place] [address] [address] [place] [address] Mikayla Mace NP Encounter for insertion of Mirena IUD (Primary Dx); Encounter for preprocedural laboratory examination; Screening for STD (sexually transmitted disease) 01/11/2025 10:30 AM CDT Ancillary Procedure Ronny Rzio [address] [place] [address] [address] [place] [address] Pelvic pain 01/05/2025 9:24 AM CDT - 01/05/2025 11:59 PM CDT Hospital Encounter [facility] [address] [place] [address] Breast pain, right Discharge Disposition: Discharge to home or self care 01/05/2025 9:24 AM CDT - 01/05/2025 11:59 PM CDT Hospital Encounter [facility] [address] [place] [address] Breast pain, right Discharge Disposition: Discharge to home or self care 01/04/2025 Results Follow-Up Ronny Rizo [address] [place] [address] [address] [place] [address] Mikayla Mace NP Pap and High Risk HPV and Genotyping (Cytology Component), DIAGNOSTIC MAMMOGRAM BILATERAL W RAUL, US Breast Limited right 01/02/2025 12:27 PM CDT - 01/02/2025 11:59 PM CDT Hospital Encounter [address] [address] Well woman exam Discharge Disposition: Discharge to home or self care 01/02/2025 11:00 AM CDT Office Visit [facility] Rizo [address] [place] [address] [address] [place] [address] Mikayla Mace NP Well woman exam (Primary Dx); Encounter for removal of intrauterine contraceptive device; Pelvic pain; Breast pain, right; Encounter for screening mammogram for breast cancer 01/02/2025 Documentation [facility] [address] [facility] [address] [place] [address] Mikayla Mace NP from Last 3 Months Surgical History Surgery Date Site/Laterality Comments ORAL SURGERY 04/12/2024 - 04/11/2025 dog knocked tooth out Medical History Medical History Date Comments Fxrsn-Nuhaoezvy-Xorae syndrome Family History Medical History Relation Name [...] on file 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 GONORRHOEAE/C. TRACHOMATIS AMPLIFICATION Routine 01/11/2025 11:37 AM CDT Screening for STD (sexually transmitted disease) VA INSERTION INTRAUTERINE DEVICE IUD Routine 01/11/2025 11:00 [...] 01/02/2025 11:32 AM CDT Well woman exam VA REMOVAL INTRAUTERINE DEVICE IUD Routine 01/02/2025 11:00 AM CDT Encounter for removal of intrauterine contraceptive device from Last 3 Months Results * N. gonorrhoeae/C. trachomatis Amplification Endocervical (01/11/2025 11:37 AM CDT) C. trachomatis Not Detected [facility] Comment:Testing performed by : [facility], [address] [place]., [address] N. gonorrhoeae Not Detected [facility] Comment: Interpretive Data This assay detects Chlamydia trachomatis and Neisseria gonorrhoeae by nucleic acid amplification testing (NAAT). This assay has been cleared by the [place] Food and Drug administration. The performance characteristics of this test have been verified by the [facility] Molecular Infectious Disease laboratory. The performance characteristics of this test have not been evaluated in individuals less than 14 years of age. Current Interpretive Data was last revised on 2023. Testing performed by: [facility], [address] [place]., [address] Endocervical (None) 01/12/20 25 11:37 AM CDT 01/12/2025 3:12 PM CDT Mikayla Mace NP LAB MICROBIOLOGY - GENE RAL ORDERABLES Final Result [facility] [id number] Department [place] [address] [facility] * VA INSERTION INTRAUTERINE DEVICE IUD (01/11/2025 11:00 AM [...] with any questions or concerns. Mikayla Mace PIT STEWARD IN CLINIC/BEDSIDE ORDER CRISTIN Final Result * POCT hCG, urine (01/11/2025 10:49 AM CDT) HCG, ur, POC Negative Negative Lot Number [id number] QC Backgroud Clear Acceptable QC Control Line Acceptable Urine 01/11/2025 10:4 9 AM CDT Mikayla Mace PIT STEWARD POINT OF CARE TEST ORDE RABLES Final Result * US Breast Limited right [...] 6 to 8 cm from the nipple. Mikayla Mace PIT STEWARD IMG MAMMO PROCEDURES Fi nal Result * [...] AM CDT EXAMINATION: DIAGNOSTIC MAMMOGRAM BILATERAL W RAUL [...] 6 to 8 cm from the nipple. Mikayla Mace PIT STEWARD IMG MAMMO PROCEDURES Fi nal Result * High Risk HPV DNA Detection with Genotyping (Molecular component) (01/02/2025 12:27 PM CDT) Pathologist [facility] [place] HPV HR 16 Not Detected Not Detected [facility] Comment:Testing performed by : [facility], [address] [facility] [place]., [address] HPV HR 18 Not Detected Not Detected [facility] Comment:Testing performed by : [facility], [address] [place]., [address] HPV HR Non 16/18 Not Detected Not Detected [facility] Comment: Interpretive Data Nucleic acid amplification for [...] this test have been verified by the [facility] Molecular Infectious Disease laboratory. Correlate with separately reported cytology results, as applicable. Interpretive data last revised 22 Testing performed by: [facility], [address] [place]., [address] Endocervical 01/02/2025 12:2 7 PM CDT 01/03/2025 1:30 PM CDT Narrative CERNER - 01/03/2025 9:43 PM CDT Clinical history and diagnosis->well woman Number of vials->1 Testing type->Screening Last menstrual period (date if known)->Unknown Contraceptive use->IUD Mikayla Mace NP LAB BODY FLUIDS AND STO OLS ORDERABLES Final Result [facility] [id number] [place] [address] [facility] * Pap and High Risk HPV and Genotyping (Cytology Component) (01/02/2025 11:32 AM CDT) Thin prep (Pap test) 01/02/2025 11:32 AM CDT 01/02/2025 11:32 AM CDT Narrative PATHOLOGY - 01/04/2025 1:43 PM CDT [facility] Department of Pathology [address] [place] [id number] Final Report with Addendum Note to Patients: [...] the details. Patient Name: VERONICA GONZALEZ Address: [address] [place] [address] Gender: F : 1980 (Age: 44) Service: Location: [facility] #: [id number] Patient Type: SPECIMEN Taken: 01/02/2025 Received: 01/02/2025 [...] this test have been verified by the [facility] Molecular Infectious Disease laboratory. Correlate with [...] determined by the Surgical Pathology Department at [facility] as part of an ongoing food quality technician program and in compliance with federally mandated [...] characteristics determined by the Surgical Pathology Department [facility]. It has not been cleared or approved by the [place] Food and Drug Administration. Mikayla Mace NP LAB CYTOLOGY ORDERABLES Final Result PATHOLOGY [address] [place] [address] * [place] REMOVAL INTRAUTERINE DEVICE IUD (01/02/2025 11:00 AM [...] Result from Last 3 Months Insurance [employer] [facility] Care Teams Paste Up Copy Camera Operator Relationship Specialty Start Date End Date Real, Liliya Streeter NP [address] [place], [place] [id number] PCP - General 06/20/17
--- OUTSIDE RECORDS SUMMARY | 2025-01-15 01:38 | XMS_ITS | Encounter Summary ---
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
--- OUTSIDE RECORDS SUMMARY | 2025-01-15 01:38 | XMS_ITS | Data Portability ---
[facility] Organization [facility] [address] [place] [address] Care Team Providers Care Truck Caterer Name Role Phone ROSARIO, LILIYA Primary Care Provider EMY Leija Commercial Litigation Paralegal Assessment No assessment recorded. Plan of Treatment Reminders Order Date Submit Date Provider Last Modified By Organization Details Last Modified Time Details Appointments None recorded. Lab pap, IG + CT/NG/TV + reflex HPV (16+18) 2017 018 [facility], [address] [place] [address], [address], [place], [address], 8 16:36:13 HIV 1+2 AB + HIV 1 p24 Ag, qualitativ e immunoassa y, serum 2017 018 [facility], [address] [place] [address], [address], [place], [address], 8 17:18:19 HBsAg (hepatitis B surface Ag), EIA, serum 2017 018 [facility], [address] [place] [address], [address], [place], [address], 8 17:18:07 hepatitis C Ab, signal-to- cutoff, serum or plasma 2017 018 [facility], [address] [place] [address], [address], [place], [address], 8 17:18:19 RPR (rapid plasma reagin), serum 2017 018 [facility], [facility] [address], [address], [place], [address], 8 17:18:07 CMP, serum or plasma 2016 017 [facility] H[facility]SON[facility], [facility] [address], [address], [place], [address], 7 06:08:58 lipid panel, serum 2016 017 MIKE LABBARBYRP, [address] [place], [place] [address], [address], [place], [address], 7 06:08:59 CBC 2016 017 MIKE HUTSONRP, [address] [place] [address], [address], [place], [address], 7 06:08:59 TSH, ultra-sens itive, serum 2016 017 [facility] LABBARBY[facility], [address] [place] [address], [address], [place], [address], 7 06:09:00 Referral None recorded. Procedures None recorded. Surgeries None recorded. Imaging None recorded. Medication Orders Mirena 21 mcg/24 hr (up to 8 years) 52 mg intrauteri ne device 2017 018 [email or web address] [id number], [address] [place], [address], 8 14:20:21 venlafaxin e 50 mg tablet 2017 018 INTERFACE [id number], [address] [place], [address], 8 15:14:37 venlafaxin e 37.5 mg tablet 2016 [id number], [address] [place], [address], 8 14:36:31 Patient TargetsNo targets recorded. Patient Instructions Encounter Date Encounter Id Patient Instructions Last Modified By Organization Details Last Modified Time 03/23/2017 [id number] deciding about using medicines to quit smoking [...] care: none Not available 03/23/2017 14:05:55 05/04/2017 [id number] deciding about using medicines to quit smoking [...] care: none Not available 05/04/2017 15:06:09 06/08/2017 [id number] abnormal Pap test: care instructions [email or web address] Not available 06/08/2017 12:18:46 Reason for Referral None Reported. Results Created Date Observation Date Name Description Value Unit Range Abnormal Flag Note LastModifiedBy Organization Detail LastModifiedTime 03/23/20 17 03/24/2017 CMP, serum or plasm a glucose, serum 90 mg/dL 65-99 Not Available [facility] ([facility]) [address] [place], [address], 03/24/2017 06:08:58 03/23/2003/24/2017 CMP, serum or plasm a BUN 9 mg/dL 6-20 Not Available [facility] ([facility]) [address] [place], [address], 03/24/2017 06:08:58 03/23/2003/24/2017 CMP, serum or plasm a creatinine, serum 0.76 mg/dL 0.57-1 .00 Not Available [facility] ([facility]) [address] [place], [address], 03/24/2017 06:08:58 03/23/2003/24/2017 CMP, serum or plasm a eGFR if nonafricn AM 102 mL/mi n/1.7 3 >59 Not Available [facility] ([facility]) [address] [place], [address], 03/24/2017 06:08:58 03/23/2003/24/2017 CMP, serum or plasm a eGFR if africn AM 118 mL/mi n/1.7 3 >59 Not Available [facility] ([facility]) [address] [place], [address], 03/24/2017 06:08:58 03/23/2003/24/2017 CMP, serum or plasm a BUN/creatini ne ratio 12 9-23 Not Available [facility] ([facility] [address] [place], [address], 03/24/2017 06:08:58 03/23/20 17 03/24/2017 CMP, serum or plasm a sodium, serum 137 mmol/ L 134-14 4 Not Available [facility] ([facility]) [address] [place], [address], 03/24/2017 06:08:58 03/23/2003/24/2017 CMP, serum or plasm a potassium, serum 4.9 mmol/ L 3.5-5. 2 Not Available [facility] ([facility]) [address] [place] [address], [address], 03/24/2017 06:08:58 03/23/2003/24/2017 CMP, serum or plasm a chloride, serum 97 mmol/ L 96-106 Not Available [facility] ([facility]) [address] [place] [address], [address], 03/24/2017 06:08:58 03/23/2003/24/2017 CMP, serum or plasm a carbon dioxide, total 22 mmol/ L 18-29 Not Available [facility] ([facility]) [address] [place] [address], [address], 03/24/2017 06:08:58 03/23/2003/24/2017 CMP, serum or plasm a calcium, serum 9.7 mg/dL 8.7-10 .2 Not Available [facility] ([facility]) [address] [place] [address], [address], 03/24/2017 06:08:58 03/23/2003/24/2017 CMP, serum or plasm a protein, total, serum 7.9 g/dL 6.0-8. 5 Not Available [facility] ([facility]) [address] [place] [address], [address], 03/24/2017 06:08:58 03/23/2003/24/2017 CMP, serum or plasm a albumin, serum 4.7 g/dL 3.5-5. 5 Not Available [facility] ([facility]) [address] [place], [address], 03/24/2017 06:08:58 03/23/2003/24/2017 CMP, serum or plasm a globulin, total 3.2 g/dL 1.5-4. 5 Not Available [facility] ([facility]) [address] [facility] [place], [address], 03/24/2017 06:08:58 03/23/2003/24/2017 CMP, serum or plasm a A/G ratio 1.5 1.2-2. 2 Not Available [facility] ([facility]) [address] [facility] [place], [address], 03/24/2017 06:08:58 03/23/2003/24/2017 CMP, serum or plasm a bilirubin, total 0.6 mg/dL 0.0-1. 2 Not Available [facility] ([facility]) [address] [facility] [place], [address], 03/24/2017 06:08:58 03/23/2003/24/2017 CMP, serum or plasm a alkaline phosphatase, S 64 IU/L 39-117 Not Available [facility] ([facility]) [address] [place], [address], 03/24/2017 06:08:58 03/23/2003/24/2017 CMP, serum or plasm a AST (SGOT) 62 IU/L 0-40 above high normal Not Available [facility] ([facility]) [address] [facility] [place], [address], 03/24/2017 06:08:58 03/23/2003/24/2017 CMP, serum or plasm a ALT (SGPT) 46 IU/L 0-32 above high normal Not Available [facility] ([facility]) [address] [facility] [place], [address], 03/24/2017 06:08:58 03/23/2003/24/2017 CBC WBC 9.2 x10e3 /uL 3.4-10 .8 Not Available [facility] ([facility]) [address] [place], [address], 03/24/2017 06:08:59 03/23/20 17 03/24/2017 CBC RBC 4.26 x10e6 /uL 3.77-5 .28 Not Available [facility] ([facility]) [address] [place], [address], 03/24/2017 06:08:59 03/23/20 17 03/24/2017 CBC hemoglobin 14.6 g/dL 11.1-1 5.9 Ple ase note refer ence ghazala spence Not Available [facility] ([facility]) [address] [place], [address], 03/24/2017 06:08:59 03/23/2003/24/2017 CBC hematocrit 41.7 % 34.0-4 6.6 Not Available [facility] ([facility]) [address] [place], [address], 03/24/2017 06:08:59 03/23/2003/24/2017 CBC MCV 98 fL 79-97 above high normal Not Available [facility] ([facility]) [address] [place], [address], 03/24/2017 06:08:59 03/23/2003/24/2017 CBC MCH 34.3 pg 26.6-3 3.0 above high normal Not Available [facility] ([facility]) [address] [place], [address], 03/24/2017 06:08:59 03/23/2003/24/2017 CBC MCHC 35.0 g/dL 31.5-3 5.7 Not Available [facility] ([facility]) [address] [place], [address], 03/24/2017 06:08:59 03/23/20 17 03/24/2017 CBC RDW 13.4 % 12.3-1 5.4 Not Available [facility] ([facility]) [address] [place], [address], 03/24/2017 06:08:59 03/23/20 17 03/24/2017 CBC NRBC FELT HANGER Not Available [facility] ([facility]) [address], [place], [address], 03/24/2017 06:08:59 03/23/20 17 03/24/2017 lipid panel , serum cholesterol, total 207 mg/dL 100-19 9 above high normal Not Available [facility] ([facility]) [address], [place], [address], 03/24/2017 06:08:59 03/23/2003/24/2017 lipid panel , serum triglyceride s 82 mg/dL 0-149 Not Available [facility] ([facility]) [address], [place], [address], 03/24/2017 06:08:59 03/23/2003/24/2017 lipid panel , serum HDL cholesterol 88 mg/dL >39 Not Available [facility] ([facility]) [address], [place], [address], 03/24/2017 06:08:59 03/23/2003/24/2017 lipid panel , serum VLDL cholesterol martina 16 mg/dL 5-40 Not Available [facility] ([facility]) [address], [place], [address], 03/24/2017 06:08:59 03/23/2003/24/2017 lipid panel , serum LDL cholesterol calc 103 mg/dL 0-99 above high normal Not Available [facility] ([facility]) [address], [place], [address], 03/24/2017 06:08:59 03/23/20 17 03/24/2017 lipid panel , serum comment: FELT HANGER Not Available [facility] ([facility]) [address] [facility], [place], [address], 03/24/2017 06:08:59 03/23/20 17 03/24/2017 TSH, ultra -sens itive , serum TSH 2.790 uIU/m L 0.450- 4.500 Not Available [facility] ([facility]) [address] [facility], [place], [address], 03/24/2017 06:09:00 06/01/19 18 06/03/2017 pap, IG + CT/NG /TV + refle x HPV (16+1 8) HPV, high-risk Negati ve negati ve This high- risk HPV test detec ts thirt een high- risk types (16/1 8/31/ 33/35 /39/4 5/51/ 52/56 /58/5 ) witho lavell nelsone jc ation . Not Available [facility] ([facility]) [address] [facility], [place], [address], 06/04/2017 16:36:13 06/01/19 18 06/03/2017 pap, IG + CT/NG /TV + refle x HPV (16+1 8) chlamydia, nuc. acid amp Negati ve negati ve Not Available [facility] ([facility]) [address] [facility], [place], [address], 06/04/2017 16:36:13 06/01/19 18 06/03/2017 pap, IG + CT/NG /TV + refle x HPV (16+1 8) gonococcus, nuc. acid amp Negati ve negati ve Not Available [facility] ([facility]) [address] [place], [address], 06/04/2017 16:36:13 06/01/19 18 06/03/2017 pap, IG + CT/NG /TV + refle x HPV (16+1 8) trich vag by TISH Negati ve negati ve Not Available [facility] ([facility]) [address] [facility], [place], [address], 06/04/2017 16:36:13 06/01/19 18 06/04/2017 pap, IG + CT/NG /TV + refle x HPV (16+1 8) diagnosis: Commen t abnormal EPITH ELIAL CELL ABNOR MALIT Y. ATYPI MARTINA SQUAM OUS CELLS OF UNDET ERMIN ED SIGNI FICAN CE. Not Available [facility] ([facility]) [address] [facility], [place], [address], 06/04/2017 16:36:13 06/01/19 18 06/04/2017 pap, IG + CT/NG /TV + refle x HPV (16+1 8) recommendati on: Commen t abnormal Sugge st follo w up as clini henrique appro priat e. Not Available [facility] ([facility]) [address] [facility], [place], [address], 06/04/2017 16:36:13 06/01/19 18 06/04/2017 pap, IG + CT/NG /TV + refle x HPV (16+1 8) specimen adequacy: Commen t Satis facto ry for evalu ation . Endoc ervic al and/o r squam ous metap lasti c cells (endo cervi martina compo nent) are prese nt. Not Available [facility] ([facility]) [address] [facility], [place], [address], 06/04/2017 16:36:13 06/01/19 18 06/04/2017 pap, IG + CT/NG /TV + refle x HPV (16+1 8) clinician provided ICD10: Sonia t Z01.4 19 Not Available [facility] ([facility]) [address] [facility], [place], [address], 06/04/2017 16:36:13 06/01/19 18 06/04/2017 pap, IG + CT/NG /TV + refle x HPV (16+1 8) performed by: Sonia Schmitz ns, Cytot echno logis t (ASCP ) Not Available [facility] ([facility]) [address] [place], [address], 06/04/2017 16:36:13 06/01/19 18 06/04/2017 pap, IG + CT/NG /TV + refle x HPV (16+1 8) electronical ly signed by: Sonia Trivedi MD, Patho logis t Not Available [facility] ([facility]) [address] [place], [address], 06/04/2017 16:36:13 06/01/19 18 06/04/2017 pap, IG + CT/NG /TV + refle x HPV (16+1 8) . . Not Available [facility] ([facility]) [address] [place], [address], 06/04/2017 16:36:13 06/01/19 18 06/04/2017 pap, IG + CT/NG /TV + refle x HPV (16+1 8) pathologist provided ICD10: Sonia lockett R87.6 10 Not Available [facility] ([facility]) [address] [place], [address], 06/04/2017 16:36:13 06/01/19 18 06/04/2017 pap, IG [...] ts do occur . Not Available [facility] ([facility]) [address] [place], [address], 06/04/2017 16:36:13 06/01/19 18 06/04/2017 pap, IG + CT/NG /TV + refle x HPV (16+1 8) test methodology: TNP The Thin Prep( R) Image r was unabl e to read this speci men. There fore a manua l revie w was perfo rmed. Not Available [facility] ([facility]) [address] [facility], [place], [address], 06/04/2017 16:36:13 Result Notes None recorded. Problems No Known Problems Procedures Surgical History Date Name Laterality Status Provider Name and Address Organization Details Recorded Time 8 IUD Replacement completed Emy Jb [facility] 06/08/2017 14:00:20 8 Date of Last Pap [facility] 12:08:35 2 Caes[facility] Section [facility] 14:43:15 Imaging Results None recorded. Procedure [...] Updated DateTime 8 164.47 cm 26 kg/m2 84539.2 2 g 100 % 100 % 80 /min 12 /min 112/86 mm[Hg] Michelle Fu [facility] 8 14:43:39 Date Recorded Body height Body mass index (BMI) Body weight Systolic And Diastolic Provider Name and Address Organization Details Last Updated DateTime 06/01/2017 164.47 cm 26.3 kg/m2 57126.57 g 182/98 mm[Hg] [facility] 06/01/2017 14:35:18 Date Recorded Body height Body mass index (BMI) Body weight Systolic And Diastolic Provider Name and Address Organization Details Last Updated DateTime 06/08/2017 164.47 cm 26.1 kg/m2 19254.05 g 128/100 mm[Hg] [facility] 06/08/2017 12:11:27 Date Recorded Body height Body mass index (BMI) Body weight Oxygen saturation Oxygen saturation in Arterial blood by Pulse oximetry Heart rate Respiratory rate Body temperature Systolic And Diastolic Provider Name and Address Organization Details Last Updated DateTime 7 164.47 cm 26.1 kg/m2 64796.9 7 g 100 % 100 % 85 /min 12 /min 98.4 [degF] 120/90 mm[Hg] Michelle Fu [facility] 7 10:27:25 Social History Question Answer Notes LastModified by Organizat ion Details LastModified Time Tobacco Smoking Status Current Every Day Smoker Michelle Fu brittaney [facility] 03/23/2017 10:05:39 Is Blood Transfusion Acceptable In [...] High Blood Pressure N Breast Cancer N Blood Clots N COPD N Depression N Lung Disease N Breast Problem N Anesthesia Complications N Headaches/Migraines N Anxiety Disorder Y Muscle, Joint, or Bone Problems N Infertility N Polyps N Acid Reflux (GERD) N Cancer N Stroke N Endometriosis N High Cholesterol N Liver Disease N Headaches N Thyroid Problems N Kidney or Bladder Problems N GI Problems N Acne N Skin Problems N Eating Disorder N Anemia N Heart Attack (AL) N Ovarian Cancer N Diabetes N Blood Transfusions N Seizures/Epilepsy N Abuse/Domestic Violence N Asthma N Allergies N Hepatitis N Heart Disease N Pre-Eclampsia N Osteoporosis N Heart Failure N Gynecological History Statement/Question Response Abnormal Pap [...] ICD10 Code Diagnosis IMO Codes Diagnosis Note [id number] MD Debora Rios (Adult Med) [address] [place] [address] 03/23/2017 09:44:18 03/23/2017 17:45:12 Generalized anxiety disorder 91542557 F41.1 ABISAI score mild, pt requests to try Effexor instead of the Paxil she used to be on, dwp r/b/se and she agrees to start low dose daily; Also dwp to stop energy drinks and decrease overall caffeine use. Adult [facility] th examination 400519894 Z00.00 Overweight 190102646 E66 .3 advised low fat, low cholestero l, low carb diet, regular exercise and weight reduction. 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 [id number] MD Debora Rios (Adult Med) [address] [place] [address] 05/04/2017 14:33:54 05/05/2017 16:02:23 Generalized anxiety disorder 08215225 F41.1 ABISAI score mild, pt requests to try Effexor instead of the Paxil she used to be on, dwp r/b/se and she agrees to start low dose daily; Also dwp to stop energy drinks and decrease overall caffeine use. Cont with venlafaxin e, increasing to 50 mg Overweight 561073882 E66 .3 advised low fat, low cholestero l, low carb diet, regular exercise and weight reduction. Tobacco de pendence syndrome 65825049 F17.200 Smoking cessation encouraged . [id number] MD Debora Blanchard (WELDER EXPERIMENTAL) [address] [place] [address] 06/01/2017 14:23:45 07/30/2017 10:57:23 Gynecologic examination 27892939 Z01.419 No record of last pap. Pap done. Venereal d isease screening 799899611 Z11.3 RTO one week for results. [facility] [id number] Z30.9 control options discussed. Pt. wants another Mirena IUD. Her current one expires in 7 days.. Benefits, risks, and alternativ es to Mirena IUD replacemen t d/w pt. Pt. expressed understand ing. All pt. questions answered. RTO within 7 days weeks for MIrena IUD replacemen t. [id number] MD Mouna Blanchardhalto (WELDER EXPERIMENTAL) [address] [place] [address] 06/08/2017 11:22:14 06/11/2017 11:57:26 Atypical squamous cells of undetermined significance on cervical Papanicolaou smear 329423752 R87.610 hr-HPV was negative. Therefore, repeat co-testing in 3 years, dwp. [facility] [id number] Z30.9 Benefits, risks, and alternativ es to [...] Castillo Member ID Guarantor Name 07/09/2022 1 MEDICA[place] [employer] Olivia Avalos [id number] Olivia Avalos 07/09/2022 1 [facility] [id number] Olivia Avalos [id number] Olivia Avalos 12/20/2020 1 [facility] [place] (MEDICAID HMO) [id number] Olivia Avalos [id number] Olivia Avalos 07/09/2022 1 [employer] [facility] ON OR AFTER 03/12/2020 (MEDICAID REPLACEMENT - HMO) Olivia Vacapetros [id number] Olivia Avalos Notes Date Note Type Note [...] Liliya Rosario APN, STEFAN-C Attn: Accounting,[address] [place], [address], [facility] 03/23/2017 14:16:10 8 text/html [...] almost been 5 years Liliya Rosario APN, GENERAL PRODUCTION LABORER-C Attn: Accounting[address] [place], [address], [facility] 05/08/2017 21:38:55 8 text/html [...] regular mammograms starting age 40. Emy [place]is[place], [place] [facility] 07/28/2017 10:18:04 8 text/html ROS as noted in the HPI Pt. presents for Mirena IUD replacement. Her current Mirena IUD expires today. She has no complaints. [place] [facility] 06/08/2017 14:01:49 OBGyn Episode Ob Episode Information Episode Created Date Number of Fetuses Patient Bloodtype Patient rh Status Prepregnancy Weight lbs Domestic Partner Domestic Partner Phone Father Name Debt Counselor Status 06/01/19 18 1 CLOSED Fetus Data First Name Last Name Admitted to NICU Weight (g) Sex Living Outcome Pediatric Complications Fetus ID Race Codes Race Delivery Type , Induced 62722 Antoine Calculation Initial Antoine Date Initial Exam [...] Domestic Partner Domestic Partner Phone Father Name Debt Counselor Status 06/01/19 18 1 CLOSED Fetus Data First Name Last Name Admitted to NICU Weight (g) Sex Living Outcome Pediatric Complications Fetus ID Race Codes Race Delivery Type , Induced 02537 Antoine Calculation Initial Antoine Date Initial Exam [...] Domestic Partner Domestic Partner Phone Father Name Debt Counselor Status 06/01/19 18 1 CLOSED Fetus Data First Name Last Name Admitted to NICU Weight (g) Sex Living Outcome Pediatric Complications Fetus ID Race Codes Race Delivery Type 3685.43 5 M Full Term 74247 Antoine Calculation Initial Antoine Date Initial Exam [...]
[2025-01-15 10:35] VITALS: BP 109/73; PULSE 68; RESP 20; TEMP 36; O2SAT 100; BMI 20.7
[2025-01-15] MEDS: LACTATED RINGERS 1,000 ML 150 ML IV CONT (10:50)
[2025-01-15 10:55] LABS: BEDSIDEPREGUCG Negative (Negative)
--- NOTE | 2025-01-15 10:58 | WPDANESEPPF ---
Anes - Initial Pre Proc Eval Procedure: Operation Date: 01/15/25 11:30 Proposed Procedures p EGD & Diagnostic Colonoscopy - Jose Calloway MD Date/Time: 01/15/25 10:58 Surgeon: Jose Calloway MD Pre Op Diagnosis: abnormal wt loss, cirrhosis, ruq abd pain, nausea Patient Data Age: 44 Gender: F Height: 1.63 m Weight: 54.7 kg Last Vital Signs Temp 36.0 C L 01/15/25 10:35 Pulse 68 01/15/25 10:35 Resp 20 01/15/25 10:35 BP 109/73 01/15/25 10:35 Pulse Ox 100 01/15/25 10:35 O2 Del Method Room Air 01/15/25 10:35 Allergies Allergy/AdvReac Type Severity Reaction Status Date / Time No Known Allergies Allergy Mild Verified 01/10/25 15:32 Home Medications ?Medication ?Instructions ?Recorded ?Confirmed ?Type methocarbamol 750 mg tablet 750 mg PO TID #30 tabs 02/09/22 01/15/25 Rx naproxen 250 mg tablet 250 mg PO BID PRN pain 01/10/25 01/15/25 History Laboratory Tests 01/15/25 10:53 POC Urine HCG, Qual Negative (Negative) Patient hx anesthesia problems: none Family hx anesthesia problems: none Results Review: All pre-operative results and documents have been reviewed as part of the pre-operative evaluation. [facility] Past Medical History Medical History Bbpne-Ffrjretbx-Qgoat (WPW) syndrome Surgical History Surgical History H/O section Social History Social History Smoking packs per day: 1 Smoking cigarettes per day: 20.0 Years smoked: 28 Smoking pack-years: 28.00 Smoking status: Current every day smoker Tobacco type: cigarettes Alcohol intake: current Alcohol use details: 2-3 BEERS PLUS A 5TH OF RUM NIGHTLY Substance use: current Substance use type: marijuana Other substance usage details: THREE TIMES A DAY Living arrangements: alone Spiritual care concerns: No Anes - Eval Final PreProcedure Day of Procedure 01/15/25 10:58 Patient weight: normal Heart: regular rate and rhythm Lungs: decreased breath sounds Airway: Mallampati scale class II Neurological: alert and oriented Last oral intake: >/= 8 hours ASA classification: IV Emergent: no Anesthetic plan: proceed Anesthesia type and monitoring: general GIVS and standard monitoring Results Review: All pre-operative results and documents have been reviewed as part of the pre-operative evaluation. Informed Consent: The patient's anesthetic plan and its attendant risks and benefits were discussed with the patient/family/POA. Questions were solicited and answers provided to the satisfaction of the patient/family/POA.
--- NOTE | 2025-01-15 11:29 | WPDHPUPDATE1 ---
History and Physical Update Update Date/Time: 01/15/25 11:29 History and Physical has been reviewed, including an updated exam of the patient. There are NO changes in the patient's condition. Risks, benefits, and alternatives have been discussed and questions answered. Patient agrees to proceed with procedure.
--- NOTE | 2025-01-15 11:40 | SUR.OPER ---
EGD start 1134 end 1136, Colonoscopy start 1140
[2025-01-15 11:57] VITALS: BP 127/91; PULSE 76; RESP 20; O2SAT 100
--- NOTE | 2025-01-15 11:57 | S_PTH ---
PATIENT: Olivia Avalos LOC: [facility] Boateng#:[id number] AGE/SX: 44/F ROOM: RE01/15/[address]: Jose Calloway MD : 1980 BED: DIS: 01/15/2025 SPEC #: [id number] RECD: 01/15/25 13:21 STATUS: MARTINEZ REGloria #: [id number] VIDAL: 01/15/25 11:[address]: Jose Calloway DEPT: [facility] Surgical RECD BY: Nidhi Sotelo ENTERED: 01/15/25 13:23 SP TYPE: Surgical OTHR DR: FRENCH TRANSLATOR PHYSICIAN Tissues: A - Gastric Biopsy B - Colon Polypectomy C - Colon Polypectomy D - Colon Polypectomy Procedures: Hematoxylin and Eosin Stain Gross and Microscopic Level 4
[2025-01-15 12:07] VITALS: BP 135/92; PULSE 79; RESP 18; O2SAT 99
[2025-01-15 12:17] VITALS: BP 158/94; PULSE 67; RESP 17; O2SAT 99
== END 2025-01-15 12:25 | disposition home or self-care (01) ==
PROVIDERS: Anesthesiology; Referring Provider Nurse Practitioner Family; Visit Provider Internal Medicine Gastroenterology
PROC: 0DJ08ZZ Inspection of Upper Intestinal Tract, Via Natural or Artificial Opening Endoscopic (ICD-10-PCS; CPT 45378; principal; 2025-01-15 11:30)
DX: D12.3 Benign neoplasm of transverse colon (principal); D12.2 Benign neoplasm of ascending colon; D12.0 Benign neoplasm of cecum; K64.8 Other hemorrhoids; K74.60 Unspecified cirrhosis of liver; I45.6 Pre-excitation syndrome; F17.210 Nicotine dependence, cigarettes, uncomplicated; F12.90 Cannabis use, unspecified, uncomplicated; R79.89 Other specified abnormal findings of blood chemistry; R74.8 Abnormal levels of other serum enzymes; Z79.1 Long term (current) use of non-steroidal anti-inflammatories (NSAID); Z98.890 Other specified postprocedural states; Z80.0 Family history of malignant neoplasm of digestive organs
CPT/HCPCS: 43239; 45385; 88305; J1596; J2003; J2704; J7120

== ENCOUNTER 2025-02-13 09:50 | Emergency (ER) | payer OTHER, SELFPAY ==
--- NOTE | ~2025-02-13 | CT_ITS ---
EXAMINATION: CT abdomen pelvis w con DATE: 02/13/2025 14:51 INDICATION: Right lower quadrant abdominal pain and nausea TECHNIQUE: Computed tomography (CT) of the abdomen and pelvis was performed with 100 mL Omnipaque-350 intravenous contrast. Automated exposure control and iterative reconstruction technique were employed. The dose-length product was 227.24 mGy-cm. COMPARISON: None FINDINGS: Lung bases are clear. Heart size is normal. No pericardial or pleural effusion. Liver, gallbladder, bowels including the appendix are normal. 1.8 cm left adnexal cyst. T-shaped IUD in expected position within the anteverted uterus. Bladder and right adnexa are unremarkable. No free intraperitoneal gas or fluid. No pathologically enlarged abdominal or pelvic lymphadenopathy. Spleen, pancreas, bilateral adrenal glands and kidneys are normal. Mild lumbar and lower thoracic spondylosis. IMPRESSION: 1. No acute intra-abdominal/pelvic process. 2. T-shaped IUD in expected position within the anteverted uterus. Reviewed, dictated and finalized at location A. ER OF CREDIT DOCUMENT EXAMINER
--- NOTE | ~2025-02-13 | XR_ITS ---
EXAMINATION: XR chest 2V DATE: 02/13/2025 13:22 INDICATION: Left arm/scapular pain. TECHNIQUE: PA and lateral views of the chest were obtained. COMPARISON: Chest radiograph and CT dated 12/15/2020 FINDINGS: The lungs remain clear with no focal airspace opacities, pulmonary edema, pleural effusion or pneumothorax. The cardiomediastinal silhouette is normal. Mild upper thoracic levocurvature with mild spondylosis. IMPRESSION: 1. No acute cardiopulmonary disease. Reviewed, dictated and finalized at location A. ION PHOTOGRAPHER
--- NOTE | 2025-02-13 09:51 | ECG_ITS ---
Test Date: 2025-02-13 10:15:56 Measurements Intervals [place] Rate: 74 P: 66 LA: 148 QRS: 49 QRSD: 95 T: 49 QT: 395 QTc: 439 Interpretive Statements SINUS RHYTHM No previous ECG available for comparison Electronically Signed On 02-13-2025 21:21:16 GOLF CART MAKER by Kirstie Reed M.D.
[2025-02-13 09:52] VITALS: BP 144/76; PULSE 87; RESP 18; TEMP 36.4; O2SAT 100
--- OUTSIDE RECORDS SUMMARY | 2025-02-13 11:03 | XMS_ITS | Encounter Summary ---
Author Organization [facility] Healthcare Address [address] [place] [address] Care Team Providers Care Nurse Aide Name Role Phone Addie, Liliya Streeter NP Primary Care Provider [phone] Taty Cameron MD Primary Care Provider [phone] Encounter Details Date Type Department Care Team (Latest Contact Info) Description 01/15/2025 Results Follow-Up [facility] Medical Group Women's Health Care at [address] [address] Oscar Bashir NP [address] [place] [address] [address] [place] [address] N. gonorrhoeae/C. 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
--- OUTSIDE RECORDS SUMMARY | 2025-02-13 11:04 | XMS_ITS | Encounter Summary ---
Author Organization [facility] Healthcare Address [address] [place] [address] Care Team Providers Care Line Palletizer Name Role Phone Taty Cameron MD Primary Care Provider [phone] Encounter Details Date Type Department Care Team (Latest Contact Info) Description 02/09/2025 Results Follow-Up [facility] Medical Group Primary Care at [place] [id number] [place] [address] Taty Cameron MD 2 [facility] [address] [place] [address] Comprehensive metabolic panel, eGFR Social History Tobacco Use Types Packs/Day Years Used Date Smoking Tobacco: Every Day Cigarettes Smokeless Tobacco: Never Alcohol Use Standard Drinks/Week Comments Not Currently 0 (1 standard drink = 0.6 oz pur e alcohol) PHQ-2 Answer Date Recorded PHQ-2 Total Score (If total score is 3 or more points, staff should administer the PHQ-9) 1 01/02/2025 PHQ-9 Answer Date Recorded PHQ-9 Total Score 1 01/02/2025 AUDIT-C Answer Date Recorded Q1: How often do you have a drink containing alcohol? Never 02/06/2025 Q2: How many drinks containi ng alcohol do you have on a typical day when you are drinking? Patient does not drink Q3: How often do you have si x or more drinks on one occasion? 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
--- OUTSIDE RECORDS SUMMARY | 2025-02-13 11:04 | XMS_ITS | Clinical Summary ---
Author Organization [facility] Address [address] [place] [address] Care Team Providers Care Network Cabler Name Role Phone Taty Cameron MD Primary Care Provider [phone] Allergies No known active allergies Medications traZODone (DESYREL) 50 mg tablet Take 1 tablet (50 mg total) by mouth nightly at bedtime 5 Active diphenhydrAMINE -acetaminophen (TYLENOL PM) 25-500 mg tablet Take 1 tablet by mouth as needed for sleep 02/07/20 25 Discontinu ed(Patient Reported) cephalexin (KEFLEX) 500 mg capsule Take 1 capsule (500 mg total) by mouth 5 02/07/20 Discontinu ed(Patient Reported) Hospital, Clinic, or Other Facility Administered Medication Ordered Dose Route Frequency Start Date End Date Status levonorgestreL (MIRENA) 21 mcg/24hr (up to 8 yrs) 52 mg IUDIndications:Abn ormal Uterine Bleeding intrauterine Continuous (implanted device) 01/11/2025 0 Active Active Problems Problem Noted Date Diagnosed Date 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 Phq-9 score 1 No concerns today. Follow up as needed Encounters Date Type Department Care Team Description 02/09/2025 Results Follow-Up [facility] Medical Group Primary Care at [address] [address] Taty Cameron MD Comprehensive metabolic panel, eGFR 02/06/2025 2:50 PM CDT Lab [address] [address] Elevated liver enzymes 02/06/2025 2:00 PM CDT Office Visit [facility] Primary Care at [address] [id number] Taty Cameron MD Elevated liver enzymes (Primary Dx); Alcohol dependence in remission (HCC); Primary insomnia; Moderate major depression (HCC) 01/15/2025 Results Follow-Up [facility] Women's Health Care at [address] [phone] Mikayla Mace NP N. gonorrhoeae/C. trachomatis Amplification Endocervical 01/11/2025 11:37 AM CDT - 01/11/2025 11:59 PM [place] [address] Screening for STD (sexually transmitted disease) Discharge Disposition: Discharge to home or self care 01/11/2025 11:00 AM CDT Procedure visit [facility] [address] [place] [address] [address] [place] [address] Mikayla Mace NP Encounter for insertion of Mirena IUD (Primary Dx); Encounter for preprocedural laboratory examination; Screening for STD (sexually transmitted disease) 01/11/2025 10:30 AM CDT Ancillary Procedure [facility] [address] [place] [address] [address] [place] [address] Pelvic pain 01/05/2025 9:24 AM CDT - 01/05/2025 11:59 PM CDT Hospital Encounter [facility] [address] [place] [address] Breast pain, right Discharge Disposition: Discharge to home or self care 01/05/2025 9:24 AM CDT - 01/05/2025 11:59 PM CDT Hospital Encounter [facility] [address] [place] [address] Breast pain, right Discharge Disposition: Discharge to home or self care 01/04/2025 Results Follow-Up [facility] [address] [place] [address] [address] [place] [address] Mikayla Mace NP Pap and High Risk HPV and Genotyping (Cytology Component), DIAGNOSTIC MAMMOGRAM BILATERAL W RAUL, US Breast Limited right 01/02/2025 12:27 PM CDT - 01/02/2025 11:59 PM CDT Hospital Encounter [address] [address] Well woman exam Discharge Disposition: Discharge to home or self care 01/02/2025 11:00 AM CDT Office Visit [facility] [address] [place] [address] [address] [place] [address] Mikayla Mace NP Well woman exam (Primary Dx); Encounter for removal of intrauterine contraceptive device; Pelvic pain; Breast pain, right; Encounter for screening mammogram for breast cancer 01/02/2025 Documentation [facility] [address] [place] [address] [address] [place] [address] Mikayla Mace NP from Last 3 Months Immunizations Immunization Administration Dates Next Due Tdap 12/15/2020 Surgical History Surgery Date Site/Laterality Comments ORAL SURGERY 04/12/2024 - 04/11/2025 dog knocked tooth out SECTION Medical History Medical History Date Comments Abjxo-Qjkmtdcgb-Fvzrj syndrome History of chicken pox Family History Medical History Relation Name Comments [...] Tobacco: Every Day Cigarettes Smokeless Tobacco: Never Tobacco Cessation:Ready to Q uit: Not Asked; Counseling Given: Not Answered Alcohol Use Standard Drinks/Week Comments Not Currently [...] on file 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 Gender Identity Not on file Sexual Orientation Not on file Obstetrics History Para Term AB IAB SAB Ectopic Multiple Livin g Live Births 2 1 1 1 1 Date Outcome GA Total Labor Labor/2nd/3rd Weight Sex Type Anes PTL Demetra A1 A5 Name Clin SAB 11/15 M C-Sec tion Epidural Complications:None Last Filed Vital Signs Vital Sign Reading Time Taken Comments Blood Pressure 128/84 02/06/2025 1:57 PM CDT Pulse 80 02/06/2025 1:57 PM CDT Temperature 36.6 C (97.9 F) 02/06/2025 1:57 PM CDT Respiratory Rate 16 02/06/2025 1:57 PM CDT Oxygen Saturation 99% 02/06/2025 1:57 PM CDT Inhaled Oxygen Concentration - - Weight 59.3 kg (130 lb 11.2 oz) 02/06/2025 1:57 PM CDT Height 162.6 cm (5' 4) 02/06/2025 1:57 PM CDT Body Mass Index 22.43 02/06/2025 1:57 PM CDT Plan of Treatment Health Maintenance Due Date Last Done Comments Hepatitis C Screening 1980 Hepatitis B Screening 2000 Influenza Vaccine (#1) 2025 Postp oned from 12/11/2024 (Patient declined, but will receive in the future) Cervical Cancer Screening 01/02/20262024, 01/02/2025 Depression Screening 01/02/2026 01/02/2025 Regular Well Visit/Exam 18-64 01/02/2026 01/02/2025 Breast Cancer Screening-Mammogram 01/05/2026 01/05/2025 Pneumococcal vaccine <65 (1 of 2 - PCV) 01/22/2026 Postponed from 2001 (Patient declined, but will receive in the future) Covid-19 Vaccine (2 - season) 2026 11/02/2020 Postponed from 12/11/2024 (Patient declined, but will receive in the future) DTaP/Tdap/Td Vaccine (2 - Td or Tdap) 12/15/2030 12/15/2020 HPV Vaccines Discontinued Procedures Procedure Name Priority Date/Time Associated Diagnosis Comments EGFR Routine 02/06/2025 2:55 PM CDT Elevated liver enzymes COMPREHENSIVE METABOLIC PANEL Routine 02/06/2025 2:55 PM CDT Elevated liver enzymes N. GONORRHOEAE/C. TRACHOMATIS AMPLIFICATION Routine 01/11/2025 11:37 AM CDT Screening for STD (sexually transmitted disease) [place] INSERTION INTRAUTERINE DEVICE IUD Routine 01/11/2025 11:00 AM CDT Encounter for insertion of Mirena IUD POCT HCG, URINE Routine 01/11/2025 10:49 AM CDT Encounter for preprocedural laboratory examination US TRANSVAGINAL Routine 01/11/2025 10:21 AM CDT Pelvic pain US BREAST RIGHT LIMITED Schedule Routine, Read [...] 01/02/2025 11:32 AM CDT Well woman exam [place] REMOVAL INTRAUTERINE DEVICE IUD Routine 01/02/2025 11:00 AM CDT Encounter for removal of intrauterine contraceptive device from Last 3 Months Results * eGFR (02/06/2025 2:55 PM CDT) eGFR >90 >=60 mL/min/1. 73 m2 Comment: Interpretive Data Reference Interval Normal >/= 90 mL/min/1.73m2 Mildly decreased* 60 - 89 mL/min/1.73m2 Mildly to moderately decreased 45 - 59 mL/min/1.73m2 Moderately to severely decreased 30 - 44 mL/min/1.73m2 Severely decreased 15 - 29 mL/min/1.73m2 Kidney Failure < 15 mL/min/1.73m2 *Relative to young adult level Estimated glomerular filtration rate is determined by the 2020 CKD-EPI equation recommended by the National Kidney Foundation (A Unifying Approach to GFR Estimation: Recommendations of the NKF-ASK Task Force on Reassessing the Inclusion of Race in Diagnosing Kidney Disease, JASN 2020). The CKD-EPI equation should not be used for patients with unstable renal function and has not been validated in children and those over 70. Current interpretive data was last reviewed 2021. Blood 02/06/2025 2:55 PM CDT 02/06/2025 6:22 PM CDT [facility] Arlen Cameron MD LAB BLOOD ORDERABLES Scarlett mckeon Result [facility] [address] [facility] Department [place] [address] * (ABNORMAL) Comprehensive metabolic panel (02/06/2025 2:55 PM CDT) Pathologist [facility] Sodium 136 135 - 145 mmol/L Potassium, pl 3.9 3.3 - 4.9 mmol/L [facility] Chloride 99 97 - 110 mmol/L [facility] CO2 25 22 - 32 mmol/L [facility] Anion gap 12 2 - 15 mmol/L [facility] BUN 6 6 - 25 mg/dL [facility] Creatinine 0.43(L) 0.60 - 1.10 mg/dL [facility] Glucose 81 70 - 199 mg/dL [facility] Comment: Interpretive Data Fasting glucose >/= 126 mg/dl is diagnostic for diabetes. Fasting is defined as no caloric intake for at least 8 hours. Fasting glucose between 100 mg/dl to 125 mg/dl is diagnostic of prediabetes. In a patient with classic symptoms of hyperglycemia or hyperglycemic crisis, a random glucose >/= 200 mg/dl is diagnostic for diabetes. In the absence of unequivocal hyperglycemia, results should be confirmed by repeat testing. The classification and Diagnosis of Diabetes Diabetes Care 2021; 46: S19-S40. Current interpretive data was last revised 2022. Calcium 9.8 8.5 - 10.3 mg/dL [facility] Bilirubin, total 0.4 0.1 - 1.2 mg/dL [facility] Protein, pl 8.1 6.5 - 8.5 g/dL [facility] Albumin 4.0 3.5 - 5.0 g/dL [facility] Alk phos 85 40 - 130 Units/L [facility] ALT 28 7 - 45 Units/L [facility] AST 55(H) 10 - 45 Units/L [facility] Blood 02/06/2025 2:55 PM CDT 02/06/2025 6:22 PM CDT Result [facility] Arlen Cameron MD LAB BLOOD ORDERABLES Scarlett l Result [facility] [address] [facility] Department [place] [address] * N. gonorrhoeae/C. trachomatis Amplification Endocervical (01/11/2025 11:37 AM CDT) C. trachomatis Not Detected [facility] Comment:Testing performed by : [facility], [address] [facility] [place]., [address] N. gonorrhoeae Not Detected [facility] Comment: Interpretive Data This assay detects Chlamydia trachomatis and Neisseria gonorrhoeae by nucleic acid amplification testing (NAAT). This assay has been cleared by the [place] Food and Drug administration. The performance characteristics of this test have been verified by the [facility] Molecular Infectious Disease laboratory. The performance characteristics of this test have not been evaluated in individuals less than 14 years of age. Current Interpretive Data was last revised on 2023. Testing performed by: [facility], [address] [place]., [address] Endocervical (None) 01/12/20 11:37 AM CDT 01/12/2025 3:12 PM CDT Mikayla Mace NP LAB MICROBIOLOGY - GENE RAL ORDERABLES Final Result [facility] [address] Department [place] [address] [facility] * [place] INSERTION INTRAUTERINE DEVICE IUD (01/11/2025 11:00 AM [...] Acceptable Urine 01/11/2025 10:4 9 AM CDT [facility]ace CYCLE COUNTER POINT OF CARE TEST ORDE RABLES Final Result * US Transvaginal (01/11/2025 10:21 AM CDT) Cul de Sac No free fluid visualized [facility] Anatomical Region Laterality Modality Pelvis N/A Ultrasound 01/11/2025 11:0 2 AM CDT Impressions 01/15/2025 4:07 PM CDT 1. There is a normal-sized uterus with an appropriately positioned IUD. 2. Normal ovaries. Narrative Procedure Note Melissa Go MD - 01/15/2025 IMPRESSION: 1. There is a normal-sized uterus with an appropriately positioned IUD. 2. Normal ovaries. Melissa Go MD IMG US PROCEDURES F inal Result * US Breast Limited right (01/05/2025 [...] 8 cm from the nipple. Mikayla Mace CYCLE COUNTER IMG MAMMO PROCEDURES Fi nal Result * [...] 6 to 8 cm from the nipple. Mooreálvaro Van Krysten CYCLE COUNTER IMG MAMMO PROCEDURES Fi nal Result * High Risk HPV DNA Detection with Genotyping (Molecular component) (01/02/2025 12:27 PM CDT) HPV HR 16 Not Detected Not Detected [facility] Comment:Testing performed by : [facility], [address] [facility] [address] HPV HR 18 Not Detected Not Detected [facility] Comment:Testing performed by : [facility], [address] [place]., [address] HPV HR Non 16/18 Not Detected Not [...] this test have been verified by the [facility] Molecular Infectious Disease laboratory. Correlate with separately reported cytology results, as applicable. Interpretive data last revised 22 Testing performed by: [facility], [address] [place]., [address] Endocervical 01/02/2025 12:2 7 PM CDT 01/03/2025 1:30 PM CDT Narrative CERNER - 01/03/2025 9:43 PM CDT Clinical history and diagnosis->well woman Number of vials->1 Testing type->Screening Last menstrual period (date if known)->Unknown Contraceptive use->IUD Mikayla Mace NP LAB BODY FLUIDS AND STO OLS ORDERABLES Final Result [facility] [address] Department of Laboratories [place] [id number] [facility] * Pap and High Risk HPV and Genotyping (Cytology Component) (01/02/2025 11:32 AM CDT) Thin prep (Pap test) 01/02/2025 11:32 AM CDT 01/02/2025 11:32 AM CDT Narrative PATHOLOGY - 01/04/2025 1:43 PM CDT [facility] Department of Pathology [address] [place] [id number] Final Report with Addendum Note to [...] the details. Patient Name: VERONICA GONZALEZ Address: [address] [place] [address] Gender: F : 1980 (Age: 44) Service: Location: [facility] #: [id number] Patient Type: SPECIMEN Taken: 01/02/2025 Received: 01/02/2025 [...] this test have been verified by the [facility] Molecular Infectious Disease laboratory. Correlate [...] determined by the Surgical Pathology Department at [facility] as part of an ongoing chemistry quality control technician program and in compliance with federally [...] characteristics determined by the Surgical Pathology Department [facility]. It has not been cleared or approved by the [place]. S. Food and Drug Administration. Mikayla Mace NP LAB CYTOLOGY ORDERABLES Final Result Performing Organization Address City/State/[facility] Co de Phone Number [facility] [address] [place] [address] * [place] REMOVAL INTRAUTERINE DEVICE IUD (01/02/2025 11:00 AM CDT) Melissa Kong MD - 01/02/2025 11:00 AM CDT Melissa [...] Final Result from Last 3 Months Insurance [facility] Care Teams Network Cabler Relationship Specialty Start Date End Date Taty Cameron MD [address] [facility] [address] [place], [place] [id number] PCP - General Family Medicine 02/06/25
--- OUTSIDE RECORDS SUMMARY | 2025-02-13 11:04 | XMS_ITS | Encounter Summary ---
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 Gender Identity Not on file Sexual Orientation Not on file documented as of this encounter Ordered Prescriptions Prescription Sig Dispense Quantity Refills Last Filled Start Date End Date metroNIDAZOLE (FLAGYL) 500 mg tabletIndications:Tr ichomonal vulvovaginitis Take 1 tablet (500 mg total) by mouth 2 (two) times a day for 7 days 14 tablet 01/04/2025 documented in this encounter Plan of Treatment Not on file documented as of this encounter Visit Diagnoses Diagnosis Trichomonal vulvovaginitis- Primary documented in this encounter Care Teams Balance Wheel Screw Hole Driller Relationship Specialty Start Date End Date Liliya Real NP [address] [place] [address] PCP - General 06/20/17 02/05/25 Taty Cameron MD [facility] [address] [facility] [address] [place] [address] PCP - General Family Medicine 02/06/25 documented as of this encounter
--- NOTE | 2025-02-13 12:34 | ED_ITS ---
HPI - General Adult General Chief complaint: Abdominal Pain <ANDRÉS Brenner Last Filed: 02/13/25 13:51> Stated complaint: pain between shoulder blades, abdominal pain <ANDRÉS Brenner Last Filed: 02/13/25 13:51> Time Seen by Provider: 02/13/25 12:34 <ANDRÉS Brenner Last Filed: 02/13/25 13:51> Focused HPI: Patient is a 44 y/o female who presents to the ED with multiple complaints. Patient reports having pain in her L upper back/scapular region, radiating down her L lateral arm last night. States pain has been intermittent every few weeks for awhile, but became significant worse last night. Somewhat worse with movement. Unable to find a comfortable position. 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 Did have numbness/tingling in her L arm last night. Denied CP or SOB last night. Denies pleuritic pain. Also reports pain in her RLQ that began last night, and is still present currently. Denies N/V/D, fevers. Notes Hx of alcholism. States she has been sober for the past 35 days. Has recently had liver tests performed as her liver enzymes were elevated. GENERAL: Well-appearing, well-nourished, and in no acute distress. HEAD: Normocephalic, atraumatic. CHEST: Clear to auscultation. ?No respiratory distress. HEART: Regular rate and rhythm.? ABD: Moderate TTP in RLQ, no rebound. Mild tenderness in epigastric region. MSK: No significant appreciable tenderness throughout LUE. Sensation intact. NEURO: ?Alert and oriented x3. Patient screened in triage and initial orders placed.? ?Additional care and disposition to be based upon?diagnostic testing and treatment. <ANDRÉS Brenner Last Filed: 02/13/25 13:51> Source: patient <ANDRÉS Brenner Last Filed: 02/13/25 13:51> Mode of arrival: ambulatory <ANDRSÉ Brenner Last Filed: 02/13/25 13:51> Limitations: no limitations <Janae Fletcher PA-C - Last Filed: 02/13/25 13:51> History of Present Illness HPI narrative: agree with HPI. Yesterday was having pain more to the left shoulder, seem to be going down the outside of her arm to the 4th and 5th digits, though has not better today. Was also having some left-sided chest pain, the that is resolved. Now having more right lower quadrant pain. Has been sober for 1 month <Sharona Soto MD - Last Filed: 02/13/25 15:58> Related Data Allergies/adverse reactions: Allergies Allergy/AdvReac Type Severity Reaction Status Date / Time No Known Allergies Allergy Mild Verified 02/13/25 09:50 <Janae Fletcher PA-C - Last Filed: 02/13/25 13:51> Review of Systems 2 Review of Systems: All systems reviewed & are unremarkable except as noted in HPI and below <Sharona Soto MD - Last Filed: 02/13/25 15:58> PMFSH Past Medical History Medical History: Medical History Kaubl-Xkteloncc-Bcipr (WPW) syndrome <Janae Fletcher PA-C - Last Filed: 02/13/25 13:51> Surgical History Surgical History: Surgical History H/O section <Janae Fletcher PA-C - Last Filed: 02/13/25 13:51> Social History Social History: Social History Smoking packs per day: 1 Smoking cigarettes per day: 20.0 Years smoked: 28 Smoking pack-years: 28.00 Smoking status: Current every day smoker Tobacco type: cigarettes Alcohol intake: current Alcohol use details: 2-3 BEERS PLUS A 5TH OF RUM NIGHTLY Substance use: current Substance use type: marijuana Other substance usage details: THREE TIMES A DAY Living arrangements: alone Spiritual care concerns: No <Janae Fletcher PA-C - Last Filed: 02/13/25 13:51> Exam 2 Narrative: EXAMINATION OF ORGAN SYSTEMS/BODY AREAS: Constitutional: Vital signs per nursing GENERAL:[No acute distress, non-toxic appearing.] HEAD: Normal with no signs of head trauma. EYES: EOMI, conjunctiva normal ENT: Hearing grossly intact LUNGS: Nonlabored breathing. HEART: [Regular rate and rhythm] ABD: [Soft], slightly tenderness palpation right lower quadrant EXT: Normal range of motion SKIN: [No rashes or lesions.] NEURO: [Alert and oriented x 3. No gross focal sensory or strength deficits. No weakness to either extremity bottle sorter strength] PSYCH: Normal affect <Sharona Soto MD - Last Filed: 02/13/25 15:58> Course Vital Signs Vital signs: Vital Signs Temperature 97.6 F 02/13/25 09:52 Pulse Rate 87 02/13/25 09:52 Respiratory Rate 18 02/13/25 09:52 Blood Pressure 144/76 H 02/13/25 09:52 Pulse Oximetry 100 02/13/25 09:52 Oxygen Delivery Room Air 02/13/25 09:52 Temperature 98 F 02/13/25 12:47 Pulse Rate 70 02/13/25 13:05 Respiratory Rate 16 02/13/25 13:05 Blood Pressure 119/90 02/13/25 13:05 Pulse Oximetry 100 02/13/25 13:05 Oxygen Delivery Room Air 02/13/25 09:52 <Janae Fletcher PA-C - Last Filed: 02/13/25 13:51> Vital Signs Temperature 97.6 F 02/13/25 09:52 Pulse Rate 87 02/13/25 09:52 Respiratory Rate 18 02/13/25 09:52 Blood Pressure 144/76 H 02/13/25 09:52 Pulse Oximetry 100 02/13/25 09:52 Oxygen Delivery Room Air 02/13/25 09:52 Temperature 98 F 02/13/25 12:47 Pulse Rate 70 02/13/25 13:05 Respiratory Rate 16 02/13/25 13:05 Blood Pressure 119/90 02/13/25 13:05 Pulse Oximetry 100 02/13/25 13:05 Oxygen Delivery Room Air 02/13/25 09:52 <Sharona Soto MD - Last Filed: 02/13/25 15:58> Medical Decision Making MDM Narrative Medical decision making narrative: MSE by HARRISON in triage. <Janae Fletcher PA-C - Last Filed: 02/13/25 13:51> MSE by HARRISON in triage. Yesterday was having pain more to the left shoulder, seem to be going down the outside of her arm to the 4th and 5th digits, though has gotten better today. Was also having some left-sided chest pain, the that is resolved. Now having more right lower quadrant pain. On exam she is well-appearing, in no distress, has normal equal pulses bilateral radial DP, overall I have lower concern for dissection, given no severe pain. No neurologic deficits, I suspect likely peripheral neuropathy for paresthesias though that has improved Chest pain workup initiated, thankfully has negative D-dimer and troponins, and her liver enzymes have actually improved. Chest x-ray unremarkable. [Decision was made to obtain a CT-abdomen to evaluate for acute abdominal process. CT-abdomen per radiology interpretation is unremarkable for acute intra-abdominal process, no signs of hydronephrosis, cholecystitis, appendicitis.] On reevaluation, the patient states that they are feeling fine. There were no witnessed episodes of vomiting in the emergency department. They are not complaining of any new abdominal pain. Repeat examination did not show any significant guarding or rebound. No new tenderness. At this time I do not feel there is any further emergent treatment to be provided. The patient was given strict return precautions, if they are to develop any worsening abdominal pain, vomiting, or blood in the vomit they are to return to the emergency department immediately. Patient verbally acknowledges understanding these directions. [The patient was informed of the above diagnostic test findings.] No further workup is necessary at this time. They will be discharged home [with prescriptions]. They were advised to follow-up with gastroenterology in 2 days. The patient feels that this is appropriate medical decision making and verbalizes an understanding of the discharge instructions. <Sharona Soto MD - Last Filed: 02/13/25 15:58> Vital Signs Vital Signs: Vital Signs Temperature 97.6 F 02/13/25 09:52 Pulse Rate 87 02/13/25 09:52 Respiratory Rate 18 02/13/25 09:52 Blood Pressure 144/76 H 02/13/25 09:52 Pulse Oximetry 100 02/13/25 09:52 Oxygen Delivery Room Air 02/13/25 09:52 Temperature 98 F 02/13/25 12:47 Pulse Rate 70 02/13/25 13:05 Respiratory Rate 16 02/13/25 13:05 Blood Pressure 119/90 02/13/25 13:05 Pulse Oximetry 100 02/13/25 13:05 Oxygen Delivery Room Air 02/13/25 09:52 <Janae Fletcher PA-C - Last Filed: 02/13/25 13:51> Vital Signs Temperature 97.6 F 02/13/25 09:52 Pulse Rate 87 02/13/25 09:52 Respiratory Rate 18 02/13/25 09:52 Blood Pressure 144/76 H 02/13/25 09:52 Pulse Oximetry 100 02/13/25 09:52 Oxygen Delivery Room Air 02/13/25 09:52 Temperature 98 F 02/13/25 12:47 Pulse Rate 70 02/13/25 13:05 Respiratory Rate 16 02/13/25 13:05 Blood Pressure 119/90 02/13/25 13:05 Pulse Oximetry 100 02/13/25 13:05 Oxygen Delivery Room Air 02/13/25 09:52 <Sharona Soto MD - Last Filed: 02/13/25 15:58> Lab Data Result diagrams: 02/13/25 12:58 02/13/25 12:58 <Janae Fletcher PA-C - Last Filed: 02/13/25 13:51> Labs: Lab Results 02/13/25 02/13/25 02/13/25 Range/Units 12:58 12:58 12:58 WBC 15.0 H (4.5-10.0) K/mm3 RBC 3.98 L (4.2-5.4) M/mm3 Hgb 12.8 (12.0-15.0) g/dL Hct 39.7 (37.0-47.0) % MCV 99.7 (80-100) fl MCH 32.2 (26-34) pg MCHC 32.2 (32-36) g/dl RDW 15.7 H (11.5-14.5) % Plt Count 447 H D (150-375) k/mm3 MPV 9.6 (7.4-10.4) fl Immature Gran % (Auto) 0.5 (0-0.5) % Neut % (Auto) 66.5 (45.5-73.1) % Lymph % (Auto) 22.9 (18.3-44.2) % [place] % (Auto) 7.3 (2.6-8.5) % Eos % (Auto) 2.1 (0-4.4) % Baso % (Auto) 0.7 (0.2-1.2) % Lymph # (Auto) 3.44 H (0.9-3.2) K/mm3 [place] # (Auto) 1.1 H (0.1-0.6) K/mm3 Eos # (Auto) 0.3 (0-0.3) K/mm3 Baso # (Auto) 0.1 (0.0-0.1) K/mm3 Abs Immat Gran (auto) 0.08 H (0.00-0.031) K/mm3 Absolute Neuts (auto) 10.0 H (1.3-6.7) K/mm3 Absolute Nucleated RBC 0.000 (0.0-0.012) K/mm3 Nucleated RBC % 0.0 (0.0-0.2) % PT 14.4 (11.1-14.7) Seconds INR 1.1 APTT 32.9 (22.3-36.8) Seconds D-Dimer Cancelled 0.39 Sodium Cancelled 137 Potassium Cancelled Chloride Carbon Dioxide Anion Gap BUN Creatinine Estim Creat Clear Calc Estimated GFR Glucose Calcium Magnesium (1.6-2.3) mg/dL Total Bilirubin AST ALT Alkaline Phosphatase Troponin I (0.000-0.034) ng/mL Total Protein Albumin Lipase (23-300) U/L Urine Color (Yellow) Urine Appearance (Clear) Urine pH (5.0-9.0) Ur Specific [place] (1.001-1.035) Urine Protein (Negative) mg/dL Urine Glucose (UA) (Negative) mg/dL Urine Ketones (Negative) mg/dL Ur Blood (Man) (Negative) Urine Nitrate (Negative) Urine Bilirubin (Negative) Urine Urobilinogen (<2.0) mg/dL Leukocyte Esterase Rfl (Negative) YUSUF/UL Urine RBC (0-2) /hpf Urine WBC (0-3) /hpf Ur Squamous Epith Cells (Few) /hpf Urine Bacteria /hpf Urine Casts Urine Test 02/13/25 02/13/25 02/13/25 Range/Units 12:58 12:58 12:58 WBC (4.5-10.0) K/mm3 RBC (4.2-5.4) M/mm3 Hgb (12.0-15.0) g/dL Hct (37.0-47.0) % MCV (80-100) fl MCH (26-34) pg MCHC (32-36) g/dl RDW (11.5-14.5) % Plt Count (150-375) k/mm3 MPV (7.4-10.4) fl Immature Gran % (Auto) (0-0.5) % Neut % (Auto) (45.5-73.1) % Lymph % (Auto) (18.3-44.2) % [place] % (Auto) (2.6-8.5) % Eos % (Auto) (0-4.4) % Baso % (Auto) (0.2-1.2) % Lymph # (Auto) (0.9-3.2) K/mm3 [place] # (Auto) (0.1-0.6) K/mm3 Eos # (Auto) (0-0.3) K/mm3 Baso # (Auto) (0.0-0.1) K/mm3 Abs Immat Gran (auto) (0.00-0.031) K/mm3 Absolute Neuts (auto) (1.3-6.7) K/mm3 Absolute Nucleated RBC (0.0-0.012) K/mm3 Nucleated RBC % (0.0-0.2) % PT (11.1-14.7) Seconds INR APTT (22.3-36.8) Seconds D-Dimer Sodium Potassium 3.4 Chloride Cancelled 102 Carbon Dioxide Cancelled 25 Anion Gap Cancelled BUN Creatinine Estim Creat Clear Calc Estimated GFR Glucose Calcium Magnesium (1.6-2.3) mg/dL Total Bilirubin AST ALT Alkaline Phosphatase Troponin I (0.000-0.034) ng/mL Total Protein Albumin Lipase (23-300) U/L Urine Color (Yellow) Urine Appearance (Clear) Urine pH (5.0-9.0) Ur Specific [place] (1.001-1.035) Urine Protein (Negative) mg/dL Urine Glucose (UA) (Negative) mg/dL Urine Ketones (Negative) mg/dL Ur Blood (Man) (Negative) Urine Nitrate (Negative) Urine Bilirubin (Negative) Urine Urobilinogen (<2.0) mg/dL Leukocyte Esterase Rfl (Negative) YUSUF/UL Urine RBC (0-2) /hpf Urine WBC (0-3) /hpf Ur Squamous Epith Cells (Few) /hpf Urine Bacteria /hpf Urine Casts Urine Test 02/13/25 02/13/25 02/13/25 Range/Units 12:58 12:58 12:58 WBC (4.5-10.0) K/mm3 RBC (4.2-5.4) M/mm3 Hgb (12.0-15.0) g/dL Hct (37.0-47.0) % MCV (80-100) fl MCH (26-34) pg MCHC (32-36) g/dl RDW (11.5-14.5) % Plt Count (150-375) k/mm3 MPV (7.4-10.4) fl Immature Gran % (Auto) (0-0.5) % Neut % (Auto) (45.5-73.1) % Lymph % (Auto) (18.3-44.2) % [place] % (Auto) (2.6-8.5) % Eos % (Auto) (0-4.4) % Baso % (Auto) (0.2-1.2) % Lymph # (Auto) (0.9-3.2) K/mm3 [place] # (Auto) (0.1-0.6) K/mm3 Eos # (Auto) (0-0.3) K/mm3 Baso # (Auto) (0.0-0.1) K/mm3 Abs Immat Gran (auto) (0.00-0.031) K/mm3 Absolute Neuts (auto) (1.3-6.7) K/mm3 Absolute Nucleated RBC (0.0-0.012) K/mm3 Nucleated RBC % (0.0-0.2) % PT (11.1-14.7) Seconds INR APTT (22.3-36.8) Seconds D-Dimer Sodium Potassium Chloride Carbon Dioxide Anion Gap 10 BUN Cancelled 6 L Creatinine Cancelled 0.46 L Estim Creat Clear Calc Cancelled Estimated GFR Glucose Calcium Magnesium (1.6-2.3) mg/dL Total Bilirubin AST ALT Alkaline Phosphatase Troponin I (0.000-0.034) ng/mL Total Protein Albumin Lipase (23-300) U/L Urine Color (Yellow) Urine Appearance (Clear) Urine pH (5.0-9.0) Ur Specific [place] (1.001-1.035) Urine Protein (Negative) mg/dL Urine Glucose (UA) (Negative) mg/dL Urine Ketones (Negative) mg/dL Ur Blood (Man) (Negative) Urine Nitrate (Negative) Urine Bilirubin (Negative) Urine Urobilinogen (<2.0) mg/dL Leukocyte Esterase Rfl (Negative) YUSUF/UL Urine RBC (0-2) /hpf Urine WBC (0-3) /hpf Ur Squamous Epith Cells (Few) /hpf Urine Bacteria /hpf Urine Casts Urine Test 02/13/25 02/13/25 02/13/25 Range/Units 12:58 12:58 12:58 WBC (4.5-10.0) K/mm3 RBC (4.2-5.4) M/mm3 Hgb (12.0-15.0) g/dL Hct (37.0-47.0) % MCV (80-100) fl MCH (26-34) pg MCHC (32-36) g/dl RDW (11.5-14.5) % Plt Count (150-375) k/mm3 MPV (7.4-10.4) fl Immature Gran % (Auto) (0-0.5) % Neut % (Auto) (45.5-73.1) % Lymph % (Auto) (18.3-44.2) % [place] % (Auto) (2.6-8.5) % Eos % (Auto) (0-4.4) % Baso % (Auto) (0.2-1.2) % Lymph # (Auto) (0.9-3.2) K/mm3 [place] # (Auto) (0.1-0.6) K/mm3 Eos # (Auto) (0-0.3) K/mm3 Baso # (Auto) (0.0-0.1) K/mm3 Abs Immat Gran (auto) (0.00-0.031) K/mm3 Absolute Neuts (auto) (1.3-6.7) K/mm3 Absolute Nucleated RBC (0.0-0.012) K/mm3 Nucleated RBC % (0.0-0.2) % PT (11.1-14.7) Seconds INR APTT (22.3-36.8) Seconds D-Dimer Sodium Potassium Chloride Carbon Dioxide Anion Gap BUN Creatinine Estim Creat Clear Calc 118 Estimated GFR Cancelled > 60 Glucose Cancelled 90 Calcium Cancelled Magnesium (1.6-2.3) mg/dL Total Bilirubin AST ALT Alkaline Phosphatase Troponin I (0.000-0.034) ng/mL Total Protein Albumin Lipase (23-300) U/L Urine Color (Yellow) Urine Appearance (Clear) Urine pH (5.0-9.0) Ur Specific [place] (1.001-1.035) Urine Protein (Negative) mg/dL Urine Glucose (UA) (Negative) mg/dL Urine Ketones (Negative) mg/dL Ur Blood (Man) (Negative) Urine Nitrate (Negative) Urine Bilirubin (Negative) Urine Urobilinogen (<2.0) mg/dL Leukocyte Esterase Rfl (Negative) YUSUF/UL Urine RBC (0-2) /hpf Urine WBC (0-3) /hpf Ur Squamous Epith Cells (Few) /hpf Urine Bacteria /hpf Urine Casts Urine Test 02/13/25 02/13/25 02/13/25 Range/Units 12:58 12:58 12:58 WBC (4.5-10.0) K/mm3 RBC (4.2-5.4) M/mm3 Hgb (12.0-15.0) g/dL Hct (37.0-47.0) % MCV (80-100) fl MCH (26-34) pg MCHC (32-36) g/dl RDW (11.5-14.5) % Plt Count (150-375) k/mm3 MPV (7.4-10.4) fl Immature Gran % (Auto) (0-0.5) % Neut % (Auto) (45.5-73.1) % Lymph % (Auto) (18.3-44.2) % [place] % (Auto) (2.6-8.5) % Eos % (Auto) (0-4.4) % Baso % (Auto) (0.2-1.2) % Lymph # (Auto) (0.9-3.2) K/mm3 [place] # (Auto) (0.1-0.6) K/mm3 Eos # (Auto) (0-0.3) K/mm3 Baso # (Auto) (0.0-0.1) K/mm3 Abs Immat Gran (auto) (0.00-0.031) K/mm3 Absolute Neuts (auto) (1.3-6.7) K/mm3 Absolute Nucleated RBC (0.0-0.012) K/mm3 Nucleated RBC % (0.0-0.2) % PT (11.1-14.7) Seconds INR APTT (22.3-36.8) Seconds D-Dimer Sodium Potassium Chloride Carbon Dioxide Anion Gap BUN Creatinine Estim Creat Clear Calc Estimated GFR Glucose Calcium 9.6 Magnesium 2.0 (1.6-2.3) mg/dL Total Bilirubin Cancelled 0.8 AST Cancelled 58 H ALT Cancelled Alkaline Phosphatase Troponin I (0.000-0.034) ng/mL Total Protein Albumin Lipase (23-300) U/L Urine Color (Yellow) Urine Appearance (Clear) Urine pH (5.0-9.0) Ur Specific [place] (1.001-1.035) Urine Protein (Negative) mg/dL Urine Glucose (UA) (Negative) mg/dL Urine Ketones (Negative) mg/dL Ur Blood (Man) (Negative) Urine Nitrate (Negative) Urine Bilirubin (Negative) Urine Urobilinogen (<2.0) mg/dL Leukocyte Esterase Rfl (Negative) YUSUF/UL Urine RBC (0-2) /hpf Urine WBC (0-3) /hpf Ur Squamous Epith Cells (Few) /hpf Urine Bacteria /hpf Urine Casts Urine Test 02/13/25 02/13/25 02/13/25 Range/Units 12:58 12:58 12:58 WBC (4.5-10.0) K/mm3 RBC (4.2-5.4) M/mm3 Hgb (12.0-15.0) g/dL Hct (37.0-47.0) % MCV (80-100) fl MCH (26-34) pg MCHC (32-36) g/dl RDW (11.5-14.5) % Plt Count (150-375) k/mm3 MPV (7.4-10.4) fl Immature Gran % (Auto) (0-0.5) % Neut % (Auto) (45.5-73.1) % Lymph % (Auto) (18.3-44.2) % [place] % (Auto) (2.6-8.5) % Eos % (Auto) (0-4.4) % Baso % (Auto) (0.2-1.2) % Lymph # (Auto) (0.9-3.2) K/mm3 [place] # (Auto) (0.1-0.6) K/mm3 Eos # (Auto) (0-0.3) K/mm3 Baso # (Auto) (0.0-0.1) K/mm3 Abs Immat Gran (auto) (0.00-0.031) K/mm3 Absolute Neuts (auto) (1.3-6.7) K/mm3 Absolute Nucleated RBC (0.0-0.012) K/mm3 Nucleated RBC % (0.0-0.2) % PT (11.1-14.7) Seconds INR APTT (22.3-36.8) Seconds D-Dimer Sodium Potassium Chloride Carbon Dioxide Anion Gap BUN Creatinine Estim Creat Clear Calc Estimated GFR Glucose Calcium Magnesium (1.6-2.3) mg/dL Total Bilirubin AST ALT 33 Alkaline Phosphatase Cancelled 61 Troponin I < 0.012 (0.000-0.034) ng/mL Total Protein Cancelled 8.6 H Albumin Cancelled Lipase (23-300) U/L Urine Color (Yellow) Urine Appearance (Clear) Urine pH (5.0-9.0) Ur Specific [place] (1.001-1.035) Urine Protein (Negative) mg/dL Urine Glucose (UA) (Negative) mg/dL Urine Ketones (Negative) mg/dL Ur Blood (Man) (Negative) Urine Nitrate (Negative) Urine Bilirubin (Negative) Urine Urobilinogen (<2.0) mg/dL Leukocyte Esterase Rfl (Negative) YUSUF/UL Urine RBC (0-2) /hpf Urine WBC (0-3) /hpf Ur Squamous Epith Cells (Few) /hpf Urine Bacteria /hpf Urine Casts Urine Test 02/13/25 Range/Units 12:58 WBC (4.5-10.0) K/mm3 RBC (4.2-5.4) M/mm3 Hgb (12.0-15.0) g/dL Hct (37.0-47.0) % MCV (80-100) fl MCH (26-34) pg MCHC (32-36) g/dl RDW (11.5-14.5) % Plt Count (150-375) k/mm3 MPV (7.4-10.4) fl Immature Gran % (Auto) (0-0.5) % Neut % (Auto) (45.5-73.1) % Lymph % (Auto) (18.3-44.2) % [place] % (Auto) (2.6-8.5) % Eos % (Auto) (0-4.4) % Baso % (Auto) (0.2-1.2) % Lymph # (Auto) (0.9-3.2) K/mm3 [place] # (Auto) (0.1-0.6) K/mm3 Eos # (Auto) (0-0.3) K/mm3 Baso # (Auto) (0.0-0.1) K/mm3 Abs Immat Gran (auto) (0.00-0.031) K/mm3 Absolute Neuts (auto) (1.3-6.7) K/mm3 Absolute Nucleated RBC (0.0-0.012) K/mm3 Nucleated RBC % (0.0-0.2) % PT (11.1-14.7) Seconds INR APTT (22.3-36.8) Seconds D-Dimer Sodium Potassium Chloride Carbon Dioxide Anion Gap BUN Creatinine Estim Creat Clear Calc Estimated GFR Glucose Calcium Magnesium (1.6-2.3) mg/dL Total Bilirubin AST ALT Alkaline Phosphatase Troponin I (0.000-0.034) ng/mL Total Protein Albumin 4.2 Lipase 86 (23-300) U/L Urine Color Yellow (Yellow) Urine Appearance Clear (Clear) Urine pH 5.5 (5.0-9.0) Ur Specific [place] 1.014 (1.001-1.035) Urine Protein Negative (Negative) mg/dL Urine Glucose (UA) Negative (Negative) mg/dL Urine Ketones Negative (Negative) mg/dL Ur Blood (Man) Negative (Negative) Urine Nitrate Negative (Negative) Urine Bilirubin Negative (Negative) Urine Urobilinogen 1.0 (<2.0) mg/dL Leukocyte Esterase Rfl Trace H (Negative) YUSUF/UL Urine RBC 0-2 (0-2) /hpf Urine WBC 0-5 (0-3) /hpf Ur Squamous Epith Cells Occasional (Few) /hpf Urine Bacteria None seen /hpf Urine Casts 0-2 Urine Test Negative <Janae Fletcher PA-C - Last Filed: 02/13/25 13:51> Lab Results 02/13/25 02/13/25 02/13/25 Range/Units 12:58 12:58 12:58 WBC 15.0 H (4.5-10.0) K/mm3 RBC 3.98 L (4.2-5.4) M/mm3 Hgb 12.8 (12.0-15.0) g/dL Hct 39.7 (37.0-47.0) % MCV 99.7 (80-100) fl MCH 32.2 (26-34) pg MCHC 32.2 (32-36) g/dl RDW 15.7 H (11.5-14.5) % Plt Count 447 H D (150-375) k/mm3 MPV 9.6 (7.4-10.4) fl Immature Gran % (Auto) 0.5 (0-0.5) % Neut % (Auto) 66.5 (45.5-73.1) % Lymph % (Auto) 22.9 (18.3-44.2) % [place] % (Auto) 7.3 (2.6-8.5) % Eos % (Auto) 2.1 (0-4.4) % Baso % (Auto) 0.7 (0.2-1.2) % Lymph # (Auto) 3.44 H (0.9-3.2) K/mm3 [place] # (Auto) 1.1 H (0.1-0.6) K/mm3 Eos # (Auto) 0.3 (0-0.3) K/mm3 Baso # (Auto) 0.1 (0.0-0.1) K/mm3 Abs Immat Gran (auto) 0.08 H (0.00-0.031) K/mm3 Absolute Neuts (auto) 10.0 H (1.3-6.7) K/mm3 Absolute Nucleated RBC 0.000 (0.0-0.012) K/mm3 Nucleated RBC % 0.0 (0.0-0.2) % PT 14.4 (11.1-14.7) Seconds INR 1.1 APTT 32.9 (22.3-36.8) Seconds D-Dimer Cancelled 0.39 Sodium Cancelled 137 Potassium Cancelled Chloride Carbon Dioxide Anion Gap BUN Creatinine Estim Creat Clear Calc Estimated GFR Glucose Calcium Magnesium (1.6-2.3) mg/dL Total Bilirubin AST ALT Alkaline Phosphatase Troponin I (0.000-0.034) ng/mL Total Protein Albumin Lipase (23-300) U/L Urine Color (Yellow) Urine Appearance (Clear) Urine pH (5.0-9.0) Ur Specific [place] (1.001-1.035) Urine Protein (Negative) mg/dL Urine Glucose (UA) (Negative) mg/dL Urine Ketones (Negative) mg/dL Ur Blood (Man) (Negative) Urine Nitrate (Negative) Urine Bilirubin (Negative) Urine Urobilinogen (<2.0) mg/dL Leukocyte Esterase Rfl (Negative) YUSUF/UL Urine RBC (0-2) /hpf Urine WBC (0-3) /hpf Ur Squamous Epith Cells (Few) /hpf Urine Bacteria /hpf Urine Casts Urine Test 02/13/25 02/13/25 02/13/25 Range/Units 12:58 12:58 12:58 WBC (4.5-10.0) K/mm3 RBC (4.2-5.4) M/mm3 Hgb (12.0-15.0) g/dL Hct (37.0-47.0) % MCV (80-100) fl MCH (26-34) pg MCHC (32-36) g/dl RDW (11.5-14.5) % Plt Count (150-375) k/mm3 MPV (7.4-10.4) fl Immature Gran % (Auto) (0-0.5) % Neut % (Auto) (45.5-73.1) % Lymph % (Auto) (18.3-44.2) % [place] % (Auto) (2.6-8.5) % Eos % (Auto) (0-4.4) % Baso % (Auto) (0.2-1.2) % Lymph # (Auto) (0.9-3.2) K/mm3 [place] # (Auto) (0.1-0.6) K/mm3 Eos # (Auto) (0-0.3) K/mm3 Baso # (Auto) (0.0-0.1) K/mm3 Abs Immat Gran (auto) (0.00-0.031) K/mm3 Absolute Neuts (auto) (1.3-6.7) K/mm3 Absolute Nucleated RBC (0.0-0.012) K/mm3 Nucleated RBC % (0.0-0.2) % PT (11.1-14.7) Seconds INR APTT (22.3-36.8) Seconds D-Dimer Sodium Potassium 3.4 Chloride Cancelled 102 Carbon Dioxide Cancelled 25 Anion Gap Cancelled BUN Creatinine Estim Creat Clear Calc Estimated GFR Glucose Calcium Magnesium (1.6-2.3) mg/dL Total Bilirubin AST ALT Alkaline Phosphatase Troponin I (0.000-0.034) ng/mL Total Protein Albumin Lipase (23-300) U/L Urine Color (Yellow) Urine Appearance (Clear) Urine pH (5.0-9.0) Ur Specific [place] (1.001-1.035) Urine Protein (Negative) mg/dL Urine Glucose (UA) (Negative) mg/dL Urine Ketones (Negative) mg/dL Ur Blood (Man) (Negative) Urine Nitrate (Negative) Urine Bilirubin (Negative) Urine Urobilinogen (<2.0) mg/dL Leukocyte Esterase Rfl (Negative) YUSUF/UL Urine RBC (0-2) /hpf Urine WBC (0-3) /hpf Ur Squamous Epith Cells (Few) /hpf Urine Bacteria /hpf Urine Casts Urine Test 02/13/25 02/13/25 02/13/25 Range/Units 12:58 12:58 12:58 WBC (4.5-10.0) K/mm3 RBC (4.2-5.4) M/mm3 Hgb (12.0-15.0) g/dL Hct (37.0-47.0) % MCV (80-100) fl MCH (26-34) pg MCHC (32-36) g/dl RDW (11.5-14.5) % Plt Count (150-375) k/mm3 MPV (7.4-10.4) fl Immature Gran % (Auto) (0-0.5) % Neut % (Auto) (45.5-73.1) % Lymph % (Auto) (18.3-44.2) % [place] % (Auto) (2.6-8.5) % Eos % (Auto) (0-4.4) % Baso % (Auto) (0.2-1.2) % Lymph # (Auto) (0.9-3.2) K/mm3 [place] # (Auto) (0.1-0.6) K/mm3 Eos # (Auto) (0-0.3) K/mm3 Baso # (Auto) (0.0-0.1) K/mm3 Abs Immat Gran (auto) (0.00-0.031) K/mm3 Absolute Neuts (auto) (1.3-6.7) K/mm3 Absolute Nucleated RBC (0.0-0.012) K/mm3 Nucleated RBC % (0.0-0.2) % PT (11.1-14.7) Seconds INR APTT (22.3-36.8) Seconds D-Dimer Sodium Potassium Chloride Carbon Dioxide Anion Gap 10 BUN Cancelled 6 L Creatinine Cancelled 0.46 L Estim Creat Clear Calc Cancelled Estimated GFR Glucose Calcium Magnesium (1.6-2.3) mg/dL Total Bilirubin AST ALT Alkaline Phosphatase Troponin I (0.000-0.034) ng/mL Total Protein Albumin Lipase (23-300) U/L Urine Color (Yellow) Urine Appearance (Clear) Urine pH (5.0-9.0) Ur Specific [place] (1.001-1.035) Urine Protein (Negative) mg/dL Urine Glucose (UA) (Negative) mg/dL Urine Ketones (Negative) mg/dL Ur Blood (Man) (Negative) Urine Nitrate (Negative) Urine Bilirubin (Negative) Urine Urobilinogen (<2.0) mg/dL Leukocyte Esterase Rfl (Negative) YUSUF/UL Urine RBC (0-2) /hpf Urine WBC (0-3) /hpf Ur Squamous Epith Cells (Few) /hpf Urine Bacteria /hpf Urine Casts Urine Test 02/13/25 02/13/25 02/13/25 Range/Units 12:58 12:58 12:58 WBC (4.5-10.0) K/mm3 RBC (4.2-5.4) M/mm3 Hgb (12.0-15.0) g/dL Hct (37.0-47.0) % MCV (80-100) fl MCH (26-34) pg MCHC (32-36) g/dl RDW (11.5-14.5) % Plt Count (150-375) k/mm3 MPV (7.4-10.4) fl Immature Gran % (Auto) (0-0.5) % Neut % (Auto) (45.5-73.1) % Lymph % (Auto) (18.3-44.2) % [place] % (Auto) (2.6-8.5) % Eos % (Auto) (0-4.4) % Baso % (Auto) (0.2-1.2) % Lymph # (Auto) (0.9-3.2) K/mm3 [place] # (Auto) (0.1-0.6) K/mm3 Eos # (Auto) (0-0.3) K/mm3 Baso # (Auto) (0.0-0.1) K/mm3 Abs Immat Gran (auto) (0.00-0.031) K/mm3 Absolute Neuts (auto) (1.3-6.7) K/mm3 Absolute Nucleated RBC (0.0-0.012) K/mm3 Nucleated RBC % (0.0-0.2) % PT (11.1-14.7) Seconds INR APTT (22.3-36.8) Seconds D-Dimer Sodium Potassium Chloride Carbon Dioxide Anion Gap BUN Creatinine Estim Creat Clear Calc 118 Estimated GFR Cancelled > 60 Glucose Cancelled 90 Calcium Cancelled Magnesium (1.6-2.3) mg/dL Total Bilirubin AST ALT Alkaline Phosphatase Troponin I (0.000-0.034) ng/mL Total Protein Albumin Lipase (23-300) U/L Urine Color (Yellow) Urine Appearance (Clear) Urine pH (5.0-9.0) Ur Specific [place] (1.001-1.035) Urine Protein (Negative) mg/dL Urine Glucose (UA) (Negative) mg/dL Urine Ketones (Negative) mg/dL Ur Blood (Man) (Negative) Urine Nitrate (Negative) Urine Bilirubin (Negative) Urine Urobilinogen (<2.0) mg/dL Leukocyte Esterase Rfl (Negative) YUSUF/UL Urine RBC (0-2) /hpf Urine WBC (0-3) /hpf Ur Squamous Epith Cells (Few) /hpf Urine Bacteria /hpf Urine Casts Urine Test 02/13/25 02/13/25 02/13/25 Range/Units 12:58 12:58 12:58 WBC (4.5-10.0) K/mm3 RBC (4.2-5.4) M/mm3 Hgb (12.0-15.0) g/dL Hct (37.0-47.0) % MCV (80-100) fl MCH (26-34) pg MCHC (32-36) g/dl RDW (11.5-14.5) % Plt Count (150-375) k/mm3 MPV (7.4-10.4) fl Immature Gran % (Auto) (0-0.5) % Neut % (Auto) (45.5-73.1) % Lymph % (Auto) (18.3-44.2) % [place] % (Auto) (2.6-8.5) % Eos % (Auto) (0-4.4) % Baso % (Auto) (0.2-1.2) % Lymph # (Auto) (0.9-3.2) K/mm3 [place] # (Auto) (0.1-0.6) K/mm3 Eos # (Auto) (0-0.3) K/mm3 Baso # (Auto) (0.0-0.1) K/mm3 Abs Immat Gran (auto) (0.00-0.031) K/mm3 Absolute Neuts (auto) (1.3-6.7) K/mm3 Absolute Nucleated RBC (0.0-0.012) K/mm3 Nucleated RBC % (0.0-0.2) % PT (11.1-14.7) Seconds INR APTT (22.3-36.8) Seconds D-Dimer Sodium Potassium Chloride Carbon Dioxide Anion Gap BUN Creatinine Estim Creat Clear Calc Estimated GFR Glucose Calcium 9.6 Magnesium 2.0 (1.6-2.3) mg/dL Total Bilirubin Cancelled 0.8 AST Cancelled 58 H ALT Cancelled Alkaline Phosphatase Troponin I (0.000-0.034) ng/mL Total Protein Albumin Lipase (23-300) U/L Urine Color (Yellow) Urine Appearance (Clear) Urine pH (5.0-9.0) Ur Specific [place] (1.001-1.035) Urine Protein (Negative) mg/dL Urine Glucose (UA) (Negative) mg/dL Urine Ketones (Negative) mg/dL Ur Blood (Man) (Negative) Urine Nitrate (Negative) Urine Bilirubin (Negative) Urine Urobilinogen (<2.0) mg/dL Leukocyte Esterase Rfl (Negative) YUSUF/UL Urine RBC (0-2) /hpf Urine WBC (0-3) /hpf Ur Squamous Epith Cells (Few) /hpf Urine Bacteria /hpf Urine Casts Urine Test 02/13/25 02/13/25 02/13/25 Range/Units 12:58 12:58 12:58 WBC (4.5-10.0) K/mm3 RBC (4.2-5.4) M/mm3 Hgb (12.0-15.0) g/dL Hct (37.0-47.0) % MCV (80-100) fl MCH (26-34) pg MCHC (32-36) g/dl RDW (11.5-14.5) % Plt Count (150-375) k/mm3 MPV (7.4-10.4) fl Immature Gran % (Auto) (0-0.5) % Neut % (Auto) (45.5-73.1) % Lymph % (Auto) (18.3-44.2) % [place] % (Auto) (2.6-8.5) % Eos % (Auto) (0-4.4) % Baso % (Auto) (0.2-1.2) % Lymph # (Auto) (0.9-3.2) K/mm3 [place] # (Auto) (0.1-0.6) K/mm3 Eos # (Auto) (0-0.3) K/mm3 Baso # (Auto) (0.0-0.1) K/mm3 Abs Immat Gran (auto) (0.00-0.031) K/mm3 Absolute Neuts (auto) (1.3-6.7) K/mm3 Absolute Nucleated RBC (0.0-0.012) K/mm3 Nucleated RBC % (0.0-0.2) % PT (11.1-14.7) Seconds INR APTT (22.3-36.8) Seconds D-Dimer Sodium Potassium Chloride Carbon Dioxide Anion Gap BUN Creatinine Estim Creat Clear Calc Estimated GFR Glucose Calcium Magnesium (1.6-2.3) mg/dL Total Bilirubin AST ALT 33 Alkaline Phosphatase Cancelled 61 Troponin I < 0.012 (0.000-0.034) ng/mL Total Protein Cancelled 8.6 H Albumin Cancelled Lipase (23-300) U/L Urine Color (Yellow) Urine Appearance (Clear) Urine pH (5.0-9.0) Ur Specific [place] (1.001-1.035) Urine Protein (Negative) mg/dL Urine Glucose (UA) (Negative) mg/dL Urine Ketones (Negative) mg/dL Ur Blood (Man) (Negative) Urine Nitrate (Negative) Urine Bilirubin (Negative) Urine Urobilinogen (<2.0) mg/dL Leukocyte Esterase Rfl (Negative) YUSUF/UL Urine RBC (0-2) /hpf Urine WBC (0-3) /hpf Ur Squamous Epith Cells (Few) /hpf Urine Bacteria /hpf Urine Casts Urine Test 02/13/25 Range/Units 12:58 WBC (4.5-10.0) K/mm3 RBC (4.2-5.4) M/mm3 Hgb (12.0-15.0) g/dL Hct (37.0-47.0) % MCV (80-100) fl MCH (26-34) pg MCHC (32-36) g/dl RDW (11.5-14.5) % Plt Count (150-375) k/mm3 MPV (7.4-10.4) fl Immature Gran % (Auto) (0-0.5) % Neut % (Auto) (45.5-73.1) % Lymph % (Auto) (18.3-44.2) % [place] % (Auto) (2.6-8.5) % Eos % (Auto) (0-4.4) % Baso % (Auto) (0.2-1.2) % Lymph # (Auto) (0.9-3.2) K/mm3 [place] # (Auto) (0.1-0.6) K/mm3 Eos # (Auto) (0-0.3) K/mm3 Baso # (Auto) (0.0-0.1) K/mm3 Abs Immat Gran (auto) (0.00-0.031) K/mm3 Absolute Neuts (auto) (1.3-6.7) K/mm3 Absolute Nucleated RBC (0.0-0.012) K/mm3 Nucleated RBC % (0.0-0.2) % PT (11.1-14.7) Seconds INR APTT (22.3-36.8) Seconds D-Dimer Sodium Potassium Chloride Carbon Dioxide Anion Gap BUN Creatinine Estim Creat Clear Calc Estimated GFR Glucose Calcium Magnesium (1.6-2.3) mg/dL Total Bilirubin AST ALT Alkaline Phosphatase Troponin I (0.000-0.034) ng/mL Total Protein Albumin 4.2 Lipase 86 (23-300) U/L Urine Color Yellow (Yellow) Urine Appearance Clear (Clear) Urine pH 5.5 (5.0-9.0) Ur Specific [place] 1.014 (1.001-1.035) Urine Protein Negative (Negative) mg/dL Urine Glucose (UA) Negative (Negative) mg/dL Urine Ketones Negative (Negative) mg/dL Ur Blood (Man) Negative (Negative) Urine Nitrate Negative (Negative) Urine Bilirubin Negative (Negative) Urine Urobilinogen 1.0 (<2.0) mg/dL Leukocyte Esterase Rfl Trace H (Negative) YUSUF/UL Urine RBC 0-2 (0-2) /hpf Urine WBC 0-5 (0-3) /hpf Ur Squamous Epith Cells Occasional (Few) /hpf Urine Bacteria None seen /hpf Urine Casts 0-2 Urine Test Negative <Sharona Soto MD - Last Filed: 02/13/25 15:58> Discharge Plan Discharge Clinical Impression: Abdominal pain, right lower quadrant, Acute shoulder pain, Neuropathy <Janae Fletcher PA-C - Last Filed: 02/13/25 13:51> Patient Disposition: Home <Janae Fletcher PA-C - Last Filed: 02/13/25 13:51> Condition: Stable <ANDRÉS Brenner Last Filed: 02/13/25 13:51> Instructions: Peripheral Neuropathy (ED), Abdominal Pain (ED) <ANDRÉS Brenner Last Filed: 02/13/25 13:51> Additional Instructions: Please follow up with your doctor; you can always return for any further issues. <ANDRÉS Brenner Last Filed: 02/13/25 13:51> Patient Language: Turkish Sign Language <ANDRÉS Brenner Last Filed: 02/13/25 13:51> Prescriptions: New famotidine 20 mg tablet 20 mg PO DAILY Qty: 30 0RF alum-mag hydroxide-simeth [Maalox Advanced] 200-200-20 mg/5 mL suspension 10 ml PO QID PRN (Reason: dyspepsia) Qty: 200 0RF Rx Instructions: administer between meals and at bedtime No Action trazodone 50 mg tablet 50 mg PO QHS Qty: 30 11RF <ANDRÉS Brenner Last Filed: 02/13/25 13:51> Follow-up/Referrals: Kalen Dawson MD [Physician, Gastroenterology] - 2 Days UNKNOWN,DOCTOR [Non-Staff] <ANDRÉS Brenner Last Filed: 02/13/25 13:51>
[2025-02-13 12:47] VITALS: BP 127/77; PULSE 63; RESP 20; TEMP 36.6; O2SAT 100
[2025-02-13 13:05] VITALS: BP 119/90; PULSE 70; RESP 16; O2SAT 100
[2025-02-13 13:12] LABS: Hematocrit 39.7 % (37.0-47.0); Hemoglobin 12.8 g/dL (12.0-15.0); Immature Granulocyte Percent A 0.5 % (0-0.5); Lymphocytes Absolute Auto 3.44 K/mm3 (0.9-3.2); Mean Corpuscular HGB Conc 32.2 g/dl (32-36); Mean Corpuscular Hemoglobin 32.2 pg (26-34); Mean Corpuscular Volume 99.7 fl (80-100); Nucleated Red Blood Cells Absolute Auto 0.000 K/mm3 (0.0-0.012); Nucleated Red Blood Cells Perc 0.0 % (0.0-0.2); Platelet Count Result 447 k/mm3 (150-375); Red Blood Count 3.98 M/mm3 (4.2-5.4); White Blood Count 15.0 K/mm3 (4.5-10.0)
[2025-02-13 13:17] LABS: Add Urine Microscopic? YES; Appearance Urine Clear (Clear); Glucose Urine UA Negative (Negative); Leukocyte Esterase Ur Trace LEU/UL (Negative); Nitrate Urine Negative (Negative); Non Pathogenic Casts 0-2; Specific Grav Ur 1.014 (1.001-1.035)
[2025-02-13 13:25] LABS: INR 1.1; Prothrombin Time 14.4 Seconds (11.1-14.7)
[2025-02-13 13:26] LABS: Partial Thromboplastin Time 32.9 Seconds (22.3-36.8)
[2025-02-13 13:34] LABS: Troponin I < 0.012 ng/mL (0.000-0.034)
[2025-02-13 13:49] LABS: Alanine Aminotransferase 33 U/L (6-35); Albumin Level 4.2 g/dL (3.5-5.1); Alkaline Phosphatase 61 U/L (38-126); Anion Gap 10 mmol/L (4-12); Aspartate Amino Transferase 58 U/L (14-36); Bilirubin,Total 0.8 mg/dL (0.2-1.3); Blood Urea Nitrogen 6 mg/dL (7-17); Calcium 9.6 mg/dL (8.4-10.2); Carbon Dioxide 25 mmol/L (22-30); Chloride 102 mmol/L (98-107); Estimated CRCL calculation 118 ml/min; Estimated Glomerular Filt Rate > 60; Glucose 90 mg/dL (65-110); Lipase 86 U/L (23-300); Magnesium 2.0 mg/dL (1.6-2.3); Potassium 3.4 mmol/L (3.4-5.0); Sodium 137 mmol/L (137-145); Total Protein 8.6 g/dL (6.3-8.2)
--- NOTE | 2025-02-13 13:58 | PC.NURSE ---
lab called to add on urine test
[2025-02-13 14:39] LABS: Pregnancy On Board Control Positive
--- OUTSIDE RECORDS SUMMARY | 2025-02-13 14:46 | XMS_ITS | Encounter Summary ---
Author Organization [facility] Healthcare Address [address] [place] [address] Care Team Providers Care Vocational Training Instructor Name Role Phone Addie, Liliya Streeter NP Primary Care Provider [phone] Taty Cameron MD Primary Care Provider [phone] Encounter Details Date Type Department Care Team (Latest Contact Info) Description 01/15/2025 Results Follow-Up [facility] Medical Group Women's Health Care at [address] [address] Oscar Bashir NP [address] [place] [address] [address] [place] [address] N. gonorrhoeae/C. 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
--- OUTSIDE RECORDS SUMMARY | 2025-02-13 14:47 | XMS_ITS | Clinical Summary ---
Author Organization [facility] Address [address] [place] [address] Care Team Providers Care Full Stack Engineer Name Role Phone Taty Cameron MD Primary Care Provider [phone] Allergies No known active allergies Medications traZODone [...] 02/12/2025 Assessment & Plan (02/12/2025 6:43 PM ASSEMBLER BODY): Chronic, stable. Phq-9 score 1 No concerns today. Follow up as needed Encounters Date Type Department Care Team Description 02/09/2025 Results Follow-Up [facility] Medical Group Primary Care at [address] [address] Taty Cameron MD Comprehensive metabolic panel, eGFR 02/06/2025 2:50 PM CDT Lab [address] [address] Elevated liver enzymes 02/06/2025 2:00 PM CDT Office Visit [facility] Primary Care at [address] [id number] Taty Cameron MD Elevated liver enzymes (Primary Dx); Alcohol dependence in remission (HCC); Primary insomnia; Moderate major depression (HCC) 01/15/2025 Results Follow-Up [facility] Women's Health Care at [address] [phone] Mikayla Mace NP N. gonorrhoeae/C. trachomatis Amplification Endocervical 01/11/2025 11:37 AM CDT - 01/11/2025 11:59 PM CD[place] [address] Screening for STD (sexually transmitted disease) Discharge Disposition: Discharge to home or self care 01/11/2025 11:00 AM CDT Procedure visit [facility] [address] [place] [address] [address] [place] [address] Mikayla Mace NP Encounter for insertion of Mirena IUD (Primary Dx); Encounter for preprocedural laboratory examination; Screening for STD (sexually transmitted disease) 01/11/2025 10:30 AM CDT Ancillary Procedure [facility]ny R[facility] [address] [place] [address] [address] [place] [address] Pelvic pain 01/05/2025 9:24 AM CDT - 01/05/2025 11:59 PM CDT Hospital Encounter [facility] [address] [place] [address] Breast pain, right Discharge Disposition: Discharge to home or self care 01/05/2025 9:24 AM CDT - 01/05/2025 11:59 PM CDT Hospital Encounter [facility] [address] [place] [address] Breast pain, right Discharge Disposition: Discharge to home or self care 01/04/2025 Results Follow-Up [facility]ny [facility] [address] [place] [address] [address] [place] [address] Mikayla Mace NP Pap and High Risk HPV and Genotyping (Cytology Component), DIAGNOSTIC MAMMOGRAM BILATERAL W RAUL, US Breast Limited right 01/02/2025 12:27 PM CDT - 01/02/2025 11:59 PM CDT Hospital Encounter [address] [address] Well woman exam Discharge Disposition: Discharge to home or self care 01/02/2025 11:00 AM CDT Office Visit [facility]ny Rizo [address] [place] [address] [address] [place] [address] Mikayla Mace NP Well woman exam (Primary Dx); Encounter for removal of intrauterine contraceptive device; Pelvic pain; Breast pain, right; Encounter for screening mammogram for breast cancer 01/02/2025 Documentation [facility] [address] [place] [address] [address] [place] [address] Mikayla Mace NP from Last 3 Months Immunizations Immunization Administration Dates Next Due Tdap 12/15/2020 Surgical History Surgery Date Site/Laterality Comments ORAL SURGERY 04/12/2024 - 04/11/2025 dog knocked tooth out SECTION Medical History Medical History Date Comments Patkn-Uccyecwrp-Mjkyx syndrome History of chicken pox Family History [...] on file 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 Gender Identity Not on file Sexual Orientation [...] CDT Screening for STD (sexually transmitted disease) [place] INSERTION INTRAUTERINE DEVICE IUD Routine 01/11/2025 11:00 [...] 01/02/2025 11:32 AM CDT Well woman exam [place] REMOVAL INTRAUTERINE DEVICE IUD Routine 01/02/2025 11:00 [...] 2:55 PM CDT 02/06/2025 6:22 PM CDT [facility] Arlen Cameron MD LAB BLOOD ORDERABLES Scarlett mckeon Result [facility] [address] [facility] Department [place] [address] * (ABNORMAL) Comprehensive metabolic panel (02/06/2025 2:55 PM CDT) Pathologist [facility] Sodium 136 135 - 145 mmol/L Potassium, pl 3.9 3.3 - 4.9 mmol/L [facility] Chloride 99 97 - 110 mmol/L [facility] CO2 25 22 - 32 mmol/L [facility] Anion gap 12 2 - 15 mmol/L [facility] BUN 6 6 - 25 mg/dL [facility] Creatinine 0.43(L) 0.60 - 1.10 mg/dL [facility] Glucose 81 70 - 199 mg/dL [facility] Comment: Interpretive Data Fasting glucose >/= 126 [...] 2022. Calcium 9.8 8.5 - 10.3 mg/dL [facility] Bilirubin, total 0.4 0.1 - 1.2 mg/dL [facility] Protein, pl 8.1 6.5 - 8.5 g/dL [facility] Albumin 4.0 3.5 - 5.0 g/dL [facility] Alk phos 85 40 - 130 Units/L [facility] ALT 28 7 - 45 Units/L [facility] AST 55(H) 10 - 45 Units/L [facility] Blood 02/06/2025 2:55 PM CDT 02/06/2025 6:[address] [facility] Arlen Cameron MD LAB BLOOD ORDERABLES Scarlett l Result [facility] [address] [facility] Department [place] [address] * N. gonorrhoeae/C. trachomatis Amplification Endocervical (01/11/2025 11:37 AM CDT) C. trachomatis Not Detected [facility] Comment:Testing performed by : [facility], [address] [facility] [place] [address] N. gonorrhoeae Not Detected [facility] Comment: Interpretive Data This assay detects Chlamydia trachomatis and Neisseria gonorrhoeae by nucleic acid amplification testing (NAAT). This assay has been cleared by the [place] Food and Drug administration. The performance characteristics of this test have been verified by the [facility] Molecular Infectious Disease laboratory. The performance characteristics of this test have not been evaluated in individuals less than 14 years of age. Current Interpretive Data was last revised on 2023. Testing performed by: [facility], [address] [place]., [address] Endocervical (None) 01/12/20 11:37 AM CDT 01/12/2025 3:12 PM CDT Mikayla Mace NP LAB MICROBIOLOGY - GENE RAL ORDERABLES Final Result [facility] [address] [address] Department [place] [address] [facility] * [place] INSERTION INTRAUTERINE DEVICE IUD (01/11/2025 11:00 AM [...] Acceptable Urine 01/11/2025 10:[address] CYBER THREAT ANALYST POINT OF CARE TEST ORDE RABLES Final [...] 8 cm from the nipple. Mikayla Mace CYBER THREAT ANALYST IMG MAMMO PROCEDURES Fi nal Result * [...] cm from the nipple. Mooreálvaro Van Krysten CYBER THREAT ANALYST IMG MAMMO PROCEDURES Fi nal Result * High Risk HPV DNA Detection with Genotyping (Molecular component) (01/02/2025 12:27 PM CDT) HPV HR 16 Not Detected Not Detected [facility] Comment:Testing performed by : [facility], [address] [place]., [address] HPV HR 18 Not Detected Not Detected [facility] Comment:Testing performed by : [facility], [address] [place]., [address] HPV HR Non 16/18 Not Detected Not [...] this test have been verified by the [facility] Molecular Infectious Disease laboratory. Correlate with separately reported cytology results, as applicable. Interpretive data last revised 22 Testing performed by: [facility], [address] [place]., [address] Endocervical 01/02/2025 12:2 7 PM CDT 01/03/2025 1:30 PM CDT Narrative CERNER - 01/03/2025 9:43 PM CDT Clinical history and diagnosis->well woman Number of vials->1 Testing type->Screening Last menstrual period (date if known)->Unknown Contraceptive use->IUD Mikayla Mace NP LAB BODY FLUIDS AND STO OLS ORDERABLES Final Result [facility] [address] Department of Laboratories [place] [id number] [facility] * Pap and High Risk HPV and Genotyping (Cytology Component) (01/02/2025 11:32 AM CDT) Thin prep (Pap test) 01/02/2025 11:32 AM CDT 01/02/2025 11:32 AM CDT Narrative PATHOLOGY - 01/04/2025 1:43 PM CDT [facility] Department of Pathology [address] [place] [address] Final Report with Addendum Note to [...] the details. Patient Name: VERONICA GONZALEZ Address: [address] [place] [address] Gender: F : 1980 (Age: 44) Service: Location: [facility] #: [id number] Patient Type: SPECIMEN Taken: 01/02/2025 Received: 01/02/2025 [...] this test have been verified by the [facility] Molecular Infectious Disease laboratory. Correlate with reported [...] determined by the Surgical Pathology Department at [facility] as part of an ongoing chemistry quality [...] characteristics determined by the Surgical Pathology Department [facility]. It has not been cleared or approved by the [place]. Food and Drug Administration. Mikayla Mace NP LAB CYTOLOGY ORDERABLES Final Result Performing Organization Address City/State/[facility] Co de Phone Number [facility] [address] [place] [address] * [place] REMOVAL INTRAUTERINE DEVICE IUD (01/02/2025 11:00 AM [...] Final Result from Last 3 Months Insurance [facility] Care Teams Full Stack Engineer Relationship Specialty Start Date End Date Taty Cameron MD [address] [facility] [address] [place], [place] [phone] PCP - General Family Medicine 02/06/25
--- OUTSIDE RECORDS SUMMARY | 2025-02-13 14:47 | XMS_ITS | Encounter Summary ---
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
--- OUTSIDE RECORDS SUMMARY | 2025-02-13 14:47 | XMS_ITS | Encounter Summary ---
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 [address] [facility] [address] [place] [address] PCP - General Family Medicine 02/06/25 documented as of this encounter
[2025-02-13 16:05] VITALS: BP 122/80; PULSE 82; RESP 16; O2SAT 98
== END 2025-02-13 16:08 | disposition home or self-care (01) ==
PROVIDERS: Physician Assistant; Emergency Provider Emergency Medicine
DX: R10.31 Right lower quadrant pain (principal); M25.512 Pain in left shoulder; G62.9 Polyneuropathy, unspecified; I45.6 Pre-excitation syndrome; F17.210 Nicotine dependence, cigarettes, uncomplicated
CPT/HCPCS: 36415; 71046; 74177; 80053; 81001; 81025; 83690; 83735; 84484; 85025; 85380; 85610; 85730; 93005; 99284; Q9967